=== PATIENT | female | born 1940 | race Caucasian/White ===

== ENCOUNTER 2025-06-06 22:35 | Inpatient (IN) | payer MEDICARE, SELFPAY ==
[2025-06-06] VITALS (8 sets, daily range): BP systolic 131–139; BP diastolic 55–96; PULSE 61–65; RESP 9–19; TEMP 37.2; O2SAT 83–98; BMI 56.5
--- OUTSIDE RECORDS SUMMARY | 2025-06-06 22:38 | XMS_ITS | Clinical Summary ---
Author Organization [facility] Address [address] [place] [id number] Care Team Providers Care Quality Assurance Technician Name Role Phone Keith Kern MD Primary Care Provider [phone] Radha Whalen [facility] Unavailable Allergies Active Allergy Reactions Criticality Noted Date Comments Penicillins Hives 11/02/2005 Shellfish Containing Products Vomiting 2011 fatigue Medications MULTIVITAMIN ORAL TAB Once a day. ? 0 005 Active cholecalciferol (VITAMIN D-3) 2,000 unit capsule Take 1 capsule by mouth once daily. 0 014 Active vit C,G-Ob-mdjcj-lutein-ze axan (PRESERVISION AREDS 2) capsule Take 2 capsules by mouth once daily. 0 017 Active blood-glucose meterIndications:Type 2 diabetes mellitus with stage 3 chronic kidney disease, without long-term current use of insulin (HC) Dispense meter, test strips, lancets covered by pt ins. E11.9 NIDDM type II - Test 1 time/day 1 Device 019 Active BiPapIndications:GIRISH (obstructive sleep apnea) BIPAP machine for home use at pressure: IPAP min 4 and max 12cm/H2O PS 0-4 nasal mask x1/3month with nasal cushion x2/mo 1 Each 11 023 Active lancets (OneTouch Delica Plus Lancet) 33 gauge miscIndications:Type 2 diabetes mellitus with stage 3b chronic kidney disease, without long-term current use of insulin (HC) As directed. Dispense item covered by pt ins. E11.9 NIDDM type II - Test 1 time/day 100 Each 3 024 Active valsartan (DIOVAN) 40 mg tabletIndications:CKD (chronic kidney disease) stage 4, GFR 15-29 ml/min (HC) Take 2 Tablets (80 mg) by mouth once daily. 60 Tablet 3 024 Active furosemide (LASIX) 40 mg tablet Take 40 mg by mouth once daily in the morning. Active blood sugar diagnostic ([employer] Verio test strips) stripIndications:Type 2 diabetes mellitus with stage 3b chronic kidney disease, without long-term current use of insulin (HC) USE A SDIRECTED TO TEST ONCE DAILY. 100 Each 3 025 Active atorvastatin 80 mg tabletIndications:Pure hypercholesterolemia TAKE 1 TABLET BY MOUTH EVERY DAY WITH THE EVENING MEAL 90 Tablet 025 Active Diltiazem HCl 300 mg extended release 24 hr tabletIndications:Esse ntial hypertension with goal blood pressure less than 140/90 Take 1 Tablet (300 mg) by mouth once daily. 30 Tablet 11 025 Active carvediloL (COREG) 6.25 mg tabletIndications:Hype rtensive renal disease Take 1 Tablet (6.25 mg) by mouth two times daily with meals. 120 Tablet 025 Active levothyroxine (SYNTHROID) 100 mcg tabletIndications:Acqu ired hypothyroidism TAKE 1 TABLET(100 MCG) BY MOUTH DAILY 90 Tablet 025 Active oxybutynin XL (DITROPAN XL) 5 mg CR tabletIndications:Urge incontinence of urine TAKE 1 TABLET(5 MG) BY MOUTH DAILY 90 Tablet 025 Active escitalopram oxalate (LEXAPRO) 5 mg tabletIndications:Anxi ety TAKE 1 TABLET(5 MG) BY MOUTH DAILY IN THE MORNING 90 Tablet 1 025 Active hydrALAZINE (APRESOLINE) 10 mg tabletIndications:HTN (hypertension) TAKE 2 TABLETS(20 MG) BY MOUTH TWICE DAILY 120 Tablet 025 Active hydrALAZINE 10 mg tabletIndications:HTN (hypertension) Take 2 Tablets (20 mg) by mouth two times daily. 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 Saw NS 07/01/2020. No change beteen 2011 and 2019 scans. Recommended FU scan in 6 months and yearly for three years. Radicular pain in right arm 09/11/2018 Essential hypertension with goal blood pressure less than 140/90 07/05/2017 Hyperopia of both eyes with astigmatism and pres byopia 09/14/2016 Meibomian gland dysfunction (MGD) 09/14/2016 Type 2 diabetes mellitus wit h stage 3a chronic kidney disease 12/17/2015 AMD (age-related macular degeneration), bilatera l 06/23/2015 Nuclear senile cataract of both eyes 06/23/2015 GIRISH 02/14/2014 AHI-24, worse in supine 03/14/2014 Overview (06/13/2014): Using CPAP On 11.8 cm H20 Personal history of colonic polyps 04/25/2012 Overview (04/25/2012): Colonoscopy 03/2012 polyp, diverticulosis, no follow up needed given age Glaucoma suspect of both eyes 04/04/2012 Weakness of right upper extremity 03/06/2012 ACP (advance care planning) 03/06/2012 Overview (11/16/2018): HCD received, please see HCD 11/09/18 RABIA Joaquin Advance Care Planning Educator [phone] RETINAL HOLE-L 11/02/2005 Obesity, morbid, BMI 40.0-49.9 04/17/2004 Hypothyroidism 01/25/2001 HYPERCHOLESTEROLEMIA, PURE 01/25/2001 Resolved Problems Problem Noted Date Diagnosed Date Resolved Date Congestive heart failure, unspecified 08/30/2006 06/18/2009 DIABETES MELLITUS, UNCOMPLICATED 01/25/2001 11/02/2005 SINUSITIS - ACUTE 11/02/2005 Encounters Date Type Department Care Team Description 05/30/2025 Telephone [facility] [place] [place] [address] [place] [address] Keith Kern MD Form (PHYSICAL THERAPY RECERT & PLAN OF CARE) 05/17/2025 Refill [facility] [place] [id number] [place] [id number] Radha Whalen MBBS Refill Request (Hydralazine) 04/15/2025 Refill [facility] [place] [place] [address] [place] [address] Keith Kern MD Refill Request (Escitalopram Oxalate) 04/12/2025 Refill [facility] [place] [place] [address] [place] [address] Keith Kern MD Refill Request (Levothyroxine, Oxybutynin Xl) 04/07/2025 Refill [facility] [place] [id number] [place] [address] Radha Whalen MBBS Refill Request (Carvedilol) from Last 3 Months Immunizations Immunization Administration Dates Next Due COVID-19 vaccine (Moderna 100mcg/0.5mL) PF, MDV 01/07/2021,12/10/2020 COVID-19 vaccine (Moderna Victor Manuel viola 50mcg/0.25mL) PF, MDV 07/31/2021 Influenza, High-dose Inactivated 06/17/2016,05/29,06/13/2014 Influenza, IIV3 (Age >=3 years) 08/13/20 13,07/13/2012,06/24/2011,2009,06/18/2009,09/06/2008,07/26/2007,1 11/05/2003 Influenza, Inactivated AIIV4 (Age 65+ Years) Preserv Free 06/17/2023,06/16/2022,07/16/2021,2019 Influenza, Inactivated IIV3 (Age 65+ Years) Preserv Free 06/19/2019,06/22/2018,07/05/2017 Pneumococcal Poly,23-Valent (Pneumovax) 03/23/2011,09/04/2004 Pneumococcal conj 13-Valent (Prevnar 13) 12/12/2014 Td (Age >=7 Years) 12/16/2004 Tdap 07/13/2012 Zoster (Zostavax-ZVL, live) 04/27/2013 Family History Medical History Relation Name Comments Heart Disease Father Heart Disease Maternal Grandfather Heart Disease Mother Hypertension Sister 3 Hyperlipidemia Sister 4 Cancer Sister 5 Uterine Cancer-breast No Family History Cancer-ovarian No Family History Relation Name Status Comments Father (Age 78) heart Maternal Grandfather Maternal Grandmother Mother (Age 83) heart Paternal Grandfather Paternal Grandmother Sister 1 Alive Sister 2 Alive Sister 3 Sister 4 Sister 5 Social History Tobacco Use Types Packs/Day Years Used Date Smoking Tobacco: Former Cigarettes 0.5 11 1 972 - 09/26/1982 Smokeless Tobacco: Never Tobacco Cessation:Counseling Given: Not Answered Alcohol Use Standard Drinks/Week Comments No 0 (1 standard drink = 0.6 oz pur e alcohol) PHQ-2 Answer Date Recorded PHQ-2 TOTAL SCORE 5 05/04/2024 Social Connections Answer Date Recorded Do you often feel lonely or isolated from those around you? 4 02/05/2025 Financial Resource Strain Answer Date R ecorded Difficulty of Paying Living Expenses 3 02/05/2025 Difficulty of Paying Living Expenses Not on file 02/05/2025 Food Insecurity Answer Date Recorded Do you worry your food will run out before you are able to buy more? 1 02/05/2025 Transportation Needs Answer Date Record ed Does lack of transportation keep you from medica l appointments? 1 02/05/2025 Does lack of transportation keep you from work, meetings or getting things that you need? 1 02/05/2025 Housing Stability Answer Date Recorded What is your housing situation today? 1 02/05/2025 Interpersonal Safety Answer Date Record ed Are you being hit, kicked, p ushed or yelled at (see row info)? No 06/03/2024 Interpersonal Safety Abuse 12 - 18 Not on file 06/03/2024 Interpersonal Safety Ambulatory Vulnerability No t on file 06/03/2024 Utilities Answer Date Recorded Do you have trouble paying f or utilities (for example, heat, electricity, water, phone)? 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 on file Not on file Not on file Obstetrics History Last Filed Vital Signs Vital Sign Reading Time Taken Comments Blood Pressure 132/54 02/05/2025 4:42 PM CDT Pulse 74 02/05/2025 4:42 PM CDT Temperature 36.7 C (98.1 F) 06/03/2024 2:20 PM CDT Respiratory Rate 16 06/03/2024 2:20 PM CDT Oxygen Saturation 94% 02/05/2025 4:4 2 PM CDT Inhaled Oxygen Concentration - - Weight 100.8 kg (222 lb 3.2 oz) 10/12/2024 10:51 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 Height 149.9 cm (4' 11) 06/03/2024 2:2 0 PM CDT Body Mass Index 44.88 06/03/2024 2:20 PM CDT Plan of Treatment Health Maintenance Due Date Last Done Comments Zoster (shingles) series for age 50+ (2 of 3) 06/22/2013 04/27/2013 RSV vaccine for adults or (1 - 1-dose 75+ series) 02/08/2016 Tetanus booster 07/13/2022 07/13/2012, 12/16/2004 BMI (ht and wt on same day) for age 18+ 05/04/2025 05/04/2024, 12/27/2023, 01/06/2023, Additional history exists Medicare Wellness for age 65+ 05/05/2025 05/04/2024, 12/17/2022, 09/10/2019, Additional history exists Depression screening for age 12+ 05/07/2025 05/07/2024, 05/04/2024, 12/17/2022, Additional history exists COVID-19 vaccine series ( season) 2025 07/31/2021, 01/07/2021, 12/10/2020 Influenza Vaccine (#1) 2025 3, 06/16/2022, 07/16/2021, Additional history exists Pneumococcal series for age 50+ Completed 12/12/2014, 03/23/2011, 09/04/2004 DEXA/DXA scan for age 65+ Completed 12/30/2016, Hepatitis B series for 19+ Aged Out N o longer eligible based on patient's age to complete this topic Procedures Procedure Name Priority Date/Time Associated Diagnosis Comments XR DXA BONE DENSITY 2 SITES AXIAL Routine 12/30/2016 9:53 AM CDT Asymptomatic postmenopausal state from Last 3 Months or Most Recently Relevant to Health Maintenance Results * (ABNORMAL) XR DXA BONE DENSITY 2 SITES AXIAL (12/30/2016 9:53 AM CDT) Anatomical Region Laterality Modality Spine, HIPS, HIPL, HIPR Other Narrative 02/01/2017 11:40 AM CDT Please see scanned document for results of this study. 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
--- NOTE | 2025-06-06 22:56 | CRLHL7_ITS ---
For Patients: As a result of the Century Cures Act, medical imaging exams and procedure reports are released immediately into your electronic medical record. You may view this report before your referring provider. If you have questions, please contact your health care provider. INDICATION: Fall, 06/05/2025. TECHNIQUE: CT head without contrast. COMPARISON: 05/15/2020. FINDINGS: Brain parenchyma, CSF spaces, and extra-axial spaces: Unchanged large right-sided posterior fossa arachnoid cyst with mass effect on the cerebellum.The lyles-white differentiation is normal. No acute intracranial hemorrhage. Skull base and calvarium: Mild bilateral maxillary sinus mucosal thickening. Prior left mastoidectomy. New fluid versus soft tissue density in the left middle ear. The visualized orbits are grossly unremarkable. No skull fracture. Atherosclerotic calcification of the bilateral carotid siphons. IMPRESSION: 1. No acute intracranial abnormality. 2. Unchanged large right-sided posterior fossa arachnoid cyst with mass effect cerebellum subarachnoid. 3. Prior left mastectomy with new fluid versus soft tissue density in the left middle ear. Recommend correlation for otitis media. Please note that all CT scans at this facility use dose modulation, iterative reconstruction, and/or weight-based dosing when appropriate to reduce radiation dose to as low as reasonably achievable. Dictated by Grant Milan MD @ 06/07/2025 12:52:23 AM (Electronically Signed)
--- NOTE | 2025-06-06 22:56 | CRLHL7_ITS ---
For Patients: As a result of the Century Cures Act, medical imaging exams and procedure reports are released immediately into your electronic medical record. You may view this report before your referring provider. If you have questions, please contact your health care provider. INDICATION: Fall. TECHNIQUE: CT cervical spine without contrast. COMPARISON: None. FINDINGS: Vertebrae: Straightening of the cervical lordosis with grade 1 anterolisthesis of C4 on C5. There are no fractures or suspicious bony lesions. Discs and facet joints: There are wpxb-ig-grkllgyo diffuse degenerative changes in the disc spaces and facet joints. Extraspinal findings: Paraspinous soft tissues are unremarkable. IMPRESSION: 1. No sign of acute injury. 2. Deyp-qo-qymouuty multilevel degenerative spondylosis. Please note that all CT scans at this facility use dose modulation, iterative reconstruction, and/or weight-based dosing when appropriate to reduce radiation dose to as low as reasonably achievable. Dictated by Grant Milan MD @ 06/07/2025 12:55:45 AM (Electronically Signed)
--- NOTE | 2025-06-06 22:56 | CRLHL7_ITS ---
For Patients: As a result of the Century Cures Act, medical imaging exams and procedure reports are released immediately into your electronic medical record. You may view this report before your referring provider. If you have questions, please contact your health care provider. INDICATION: FALL 06/05/25, BRUISING LT UPPER POSTERIOR RIBS. TECHNIQUE: CT chest without contrast. COMPARISON: None. FINDINGS: Lungs and pleura: No suspicious nodules or infiltrates. No pleural effusions, pleural thickening, or pneumothorax. Heart and vasculature: Heart size is normal. Thoracic aorta and pulmonary artery are normal in caliber. Coronary artery and thoracic aorta atherosclerotic calcification. Lymph nodes/mediastinum: No mediastinal, hilar, or axillary adenopathy. Chest wall: No masses. Upper abdomen: Indeterminate 3.5 cm hyperdense left renal lesion. 3 mm nonobstructing left nephrolith. Bones: Unremarkable for age. IMPRESSION: 1. No evidence of an acute traumatic injury within the chest. No acute findings. 2. Indeterminate 3.5 cm hyperdense left renal lesion, possibly a proteinaceous or hemorrhagic cyst. Consider ultrasound for further evaluation. Please note that all CT scans at this facility use dose modulation, iterative reconstruction, and/or weight-based dosing when appropriate to reduce radiation dose to as low as reasonably achievable. Dictated by Grant Milan MD @ 06/07/2025 1:03:15 AM (Electronically Signed)
--- NOTE | 2025-06-06 23:00 | ED.GENADULT ---
HPI - General Adult General Date Seen: 06/06/25 <Harley Hitesh DO Perfecto - Last Filed: 06/06/25 23:51> Chief complaint: Urogenital Problems, Female <Harley Grove DO - Last Filed: 06/06/25 23:51> Stated complaint: weakness/ infection <Harley Grove DO - Last Filed: 06/06/25 23:51> Time Seen by Provider: 06/06/25 22:47 <Harley Tororam DO - Last Filed: 06/06/25 23:51> Source: patient <Harley Grove DO - Last Filed: 06/06/25 23:51> Mode of arrival: ambulatory <Harley Grove - Last Filed: 06/06/25 23:51> Limitations: no limitations <Harley Grove DO - Last Filed: 06/06/25 23:51> History of Present Illness HPI narrative: Patient is a 5-year-old female presenting to the emergency department for altered mental status. She lives at home alone but her son lives next door. She does have a history of dementia. He states notice yesterday she fell once but was doing okay other than having some bruising to her left arm and left side of her back. She did not hit her head as far as they are aware but cannot say for certain. The patient since then they have noticed has been much more sleepy and fatigued. They notice she will be walking at all look like she falls asleep while she is walking. They have never noticed her do this before. She also falsely big conversation which is abnormal for her. She went to physical therapy today and when she got back she slept some more. She does have history of UTIs and they are wondering if she has a urinary tract infection. He also states she felt warm to the touch at home. Patient denies fevers, chills, chest pain, shortness of breath, weakness, numbness, diarrhea, constipation, abdominal pain, headache, vision changes. When patient arrived she was satting 83% on room air. She does not wear oxygen at home. She does have a CPAP at night. <Harley Grove - Last Filed: 06/06/25 23:51> Related Data Allergies/adverse reactions: Allergies Allergy/AdvReac Type Severity Reaction Status Date / Time No Known Drug Allergies Allergy Verified 06/06/25 22:47 <Harley Grove DO - Last Filed: 06/06/25 23:51> Review of Systems Status of ROS: Reports: 10 or more systems reviewed and unremarkable except as noted in History and below <Harley Grove DO - Last Filed: 06/06/25 23:51> PFSH PFSH Social History: Social History Smoking Status: Unknown if ever smoked <Harley Grove DO - Last Filed: 06/06/25 23:51> Exam Narrative: Exam Narrative: Const: Well-nourished, Well-developed, in mild distress Eyes: PERRL, no conjunctival injection, and symmetrical lids HENT: Atraumatic external nose and ears. Moist mucous membranes. Neck: Symmetric, trachea midline, No thyromegaly. CVS: RRR, No murmurs or gallops. Peripheral pulses 2+ and equal in all extremities RESP: Unlabored respiratory effort. Clear to auscultation bilaterally. GI: Nontender/Nondistended, No rebound or guarding. MSK:Extremities w/o deformity, Normal Active ROM, tenderness and bruising to her left lateral upper back Skin: Warm, Dry. No rashes or lesions. Neuro: Normal Muscle tone, No focal neurological deficits. Psych: Awake, Alert, & Oriented x3. Appropriate mood and affect. <Harley Grove DO - Last Filed: 06/06/25 23:51> Const: Vital Signs, click to edit/add: Vital Signs - 24 hr 06/06/25 22:42 06/06/25 22:42 06/06/25 22:48 Temperature 98.9 F Pulse Rate 61 Pulse Rate [Right Pulse Oximeter] 65 Respiratory Rate 18 18 Blood Pressure 139/69 Blood Pressure [Ri ght Upper Arm] 139/96 H Pulse Oximetry 83 L 83 L 95 Oxygen Delivery Me thod Room Air Room Air Nasal Cannula Oxygen Flow Rate 2 06/06/25 23:33 06/06/25 23:47 06/07/25 00:00 Temperature Pulse Rate 63 65 67 Pulse Rate [Right Pulse Oximeter] Respiratory Rate 12 13 Blood Pressure 131/55 L Blood Pressure [Ri ght Upper Arm] Pulse Oximetry 95 94 95 Oxygen Delivery Me thod Nasal Cannula Room Air Room Air Oxygen Flow Rate 1 <Harley Grove DO - Last Filed: 06/06/25 23:51> Vital Signs, click to edit/add: Vital Signs - 24 hr 06/06/25 22:42 06/06/25 22:42 06/06/25 22:48 Temperature 98.9 F Pulse Rate 61 Pulse Rate [Right Pulse Oximeter] 65 Respiratory Rate 18 18 Blood Pressure 139/69 Blood Pressure [Ri ght Upper Arm] 139/96 H Pulse Oximetry 83 L 83 L 95 Oxygen Delivery Me thod Room Air Room Air Nasal Cannula Oxygen Flow Rate 2 06/06/25 23:33 06/06/25 23:47 06/07/25 00:00 Temperature Pulse Rate 63 65 67 Pulse Rate [Right Pulse Oximeter] Respiratory Rate 12 13 Blood Pressure 131/55 L Blood Pressure [Ri ght Upper Arm] Pulse Oximetry 95 94 95 Oxygen Delivery Me thod Nasal Cannula Room Air Room Air Oxygen Flow Rate 1 <Souleymane Grande MD - Last Filed: 06/07/25 01:18> Course Vital Signs Vital signs: Initial Vital Signs Temperature 98.9 F 06/06/25 22:42 Temperature Source Temporal Artery Scan 06/06/25 22:42 Pulse Rate 65 06/06/25 22:42 Pulse Rhythm Regular 06/06/25 22:42 Pulse Strength 3+ Normal 06/06/25 22:42 Respiratory Rate 18 06/06/25 22:42 Blood Pressure 139/96 H 06/06/25 22:42 Blood Pressure Mean 110 H 06/06/25 22:42 Blood Pressure Position Sitting 06/06/25 22:42 Pulse Oximetry 83 L 06/06/25 22:42 Oxygen Delivery Method Room Air 06/06/25 22:42 Vital Signs Temperature 98.9 F 06/06/25 22:42 Pulse Rate 65 06/06/25 22:42 Respiratory Rate 18 06/06/25 22:42 Blood Pressure 139/96 H 06/06/25 22:42 Pulse Oximetry 83 L 06/06/25 22:42 Oxygen Delivery Method Room Air 06/06/25 22:42 Temperature 98.9 F 06/06/25 22:42 Pulse Rate 67 06/07/25 00:00 Respiratory Rate 13 06/07/25 00:00 Blood Pressure 131/55 L 06/06/25 23:33 Pulse Oximetry 95 06/07/25 00:00 Oxygen Delivery Method Room Air 06/07/25 00:00 Oxygen Flow Rate 1 06/06/25 23:33 <Harley Grove DO - Last Filed: 06/06/25 23:51> Initial Vital Signs Temperature 98.9 F 06/06/25 22:42 Temperature Source Temporal Artery Scan 06/06/25 22:42 Pulse Rate 65 06/06/25 22:42 Pulse Rhythm Regular 06/06/25 22:42 Pulse Strength 3+ Normal 06/06/25 22:42 Respiratory Rate 18 06/06/25 22:42 Blood Pressure 139/96 H 06/06/25 22:42 Blood Pressure Mean 110 H 06/06/25 22:42 Blood Pressure Position Sitting 06/06/25 22:42 Pulse Oximetry 83 L 06/06/25 22:42 Oxygen Delivery Method Room Air 06/06/25 22:42 Vital Signs Temperature 98.9 F 06/06/25 22:42 Pulse Rate 65 06/06/25 22:42 Respiratory Rate 18 06/06/25 22:42 Blood Pressure 139/96 H 06/06/25 22:42 Pulse Oximetry 83 L 06/06/25 22:42 Oxygen Delivery Method Room Air 06/06/25 22:42 Temperature 98.9 F 06/06/25 22:42 Pulse Rate 67 06/07/25 00:00 Respiratory Rate 13 06/07/25 00:00 Blood Pressure 131/55 L 06/06/25 23:33 Pulse Oximetry 95 06/07/25 00:00 Oxygen Delivery Method Room Air 06/07/25 00:00 Oxygen Flow Rate 1 06/06/25 23:33 <Souleymane Grande MD - Last Filed: 06/07/25 01:18> Medical Decision Making MDM Narrative Medical decision making narrative: Patient is 85-year-old female presenting to the emergency department for concern of weakness. The differential diagnosis of generalized weakness is broad and includes infection, electrolyte abnormalities, ACS, arrhythmia, hypoglycemia, electrolyte abnormality, respiratory failure, anemia, hypothyroidism, dehydration, medication induced etc. as he did recently fall will do CT scan of her head and cervical spine. Since he was hypoxic will also do a CT scan of her chest to look for signs of any intrathoracic abnormalities. Will also order EKG, troponin, urinalysis, blood cultures, lactate, CBC, CMP, viral swabs, magnesium. She is not appear dehydrated at this time. CBC, CMP showed no acute concerning abnormalities. Her epic chart review her creatinine is baseline. Lactate within normal limits. Magnesium within normal limits. Patient is currently on 1 L nasal cannula satting 95%. Of note she does need a CPAP at night and she is drifting off to sleep which is likely the cause of her desaturation. <Harley Grove DO - Last Filed: 06/06/25 23:51> Patient is 85-year-old female presenting to the emergency department for concern of weakness. The differential diagnosis of generalized weakness is broad and includes infection, electrolyte abnormalities, ACS, arrhythmia, hypoglycemia, electrolyte abnormality, respiratory failure, anemia, hypothyroidism, dehydration, medication induced etc. as he did recently fall will do CT scan of her head and cervical spine. Since he was hypoxic will also do a CT scan of her chest to look for signs of any intrathoracic abnormalities. Will also order EKG, troponin, urinalysis, blood cultures, lactate, CBC, CMP, viral swabs, magnesium. She is not appear dehydrated at this time. CBC, CMP showed no acute concerning abnormalities. Her epic chart review her creatinine is baseline. Lactate within normal limits. Magnesium within normal limits. Patient is currently on 1 L nasal cannula satting 95%. Of note she does need a CPAP at night and she is drifting off to sleep which is likely the cause of her desaturation. UA is unremarkable. Labs are reviewed. CT head and neck showed no acute abnormalities but she does have otitis media on the left on my exam and also on imaging. She has unremarkable chest CT. She is unable to get up. Did start her on Augmentin and at this time we are unable to get her home and she will be placed in observation. <Souleymane Grande MD - Last Filed: 06/07/25 01:18> Lab Data Labs: Lab Results 06/06/25 06/06/25 Range/Units 00:00 23:20 WBC 8.13 (4.50-11.00) K/uL RBC 3.34 L (4.00-5.20) m/uL Hgb 10.3 L (12.0-16.0) gm/dL Hct 32.2 L (33.0-51.0) % MCV 96 (80-100) fL MCH 31 (26-34) pg MCHC 32 (32-36) gm/dL RDW Coeff of Juan 13.0 (11.5-15.5) % Plt Count 164 (140-440) K/uL Neut % (Auto) 70.3 (42.0-72.0) % Lymph % (Auto) 19.1 L (20-44) % Granite % (Auto) 9.1 (0.0-11.0) % Eos % (Auto) 1.2 (0.0-7.0) % Baso % (Auto) 0.2 (0.0-3.0) % Neut # (Auto) 5.71 (1.7-7.0) K/uL Lymph # (Auto) 1.60 (0.90-2.90) K/uL Granite # (Auto) 0.70 (0.00-0.90) K/UL Eos # (Auto) 0.10 (0.00-0.50) K/uL Baso # (Auto) 0.02 (0.00-0.30) K/uL Abs Immat Gran (auto) 0.01 (0.00-0.30) K/uL Imm/Tot Granulo (auto) 0.1 % Sodium 138 (135-149) mmol/L Potassium 4.1 (3.6-5.1) mmol/L Chloride 99 (96-114) mmol/L Carbon Dioxide 35 H (20-32) mmol/L Anion Gap 4 L (7-15) mEq/L BUN 40 H (7-30) mg/dL Creatinine 1.6 H (0.5-1.5) mg/dL Estimated Creat Clear 24.50 Estimated GFR 32 ml/min Glucose 108 (60-115) mg/dL Lactate 0.6 (0.5-1.9) mmol/L Calcium 8.9 (8.4-10.6) mg/dL Magnesium 2.0 (1.5-2.6) mg/dL Total Bilirubin 0.7 (0.1-1.5) mg/dL AST 31 (12-35) U/L ALT 15 (4-35) U/L Alkaline Phosphatase 83 (40-150) U/L Troponin I 0.01 (0.01-0.04) ng/mL Total Protein 6.9 (6.0-8.3) g/dL Albumin 3.8 (3.3-5.0) g/dL Urine Color Yellow (Yellow) Urine Appearance Clear (Clear) Urine pH 5.5 (5.0-8.5) Ur Specific [place] 1.025 (1.000-1.030) Urine Protein 3+ A (Negative) Urine Glucose (UA) Negative (Negative) Urine Ketones Negative (Negative) Urine Blood Negative (Negative) Urine Nitrite Negative (Negative) Urine Bilirubin Negative (Negative) Urine Urobilinogen 0.2 (0.2-1.0) Ur Leukocyte Esterase Negative (Negative) Urine RBC 2-5 A (0-2) Urine WBC 0-2 (0-5) Ur Squamous Epith Cells Few (None-Few) Urine Bacteria Few A (None) Urine Mucus Few A (None) SARS-CoV-2 (PCR) Negative SARS-CoV-2 (Negative) Influenza Type A (PCR) Negative PCR FLU A (Negative) Influenza Type B (PCR) Negative PCR FLU B (Negative) RSV (PCR) Negative PCR RSV (Negative) <Harley Grove, DO - Last Filed: 06/06/25 23:51> Lab Results 06/06/25 06/06/25 Range/Units 00:00 23:20 WBC 8.13 (4.50-11.00) K/uL RBC 3.34 L (4.00-5.20) m/uL Hgb 10.3 L (12.0-16.0) gm/dL Hct 32.2 L (33.0-51.0) % MCV 96 (80-100) fL MCH 31 (26-34) pg MCHC 32 (32-36) gm/dL RDW Coeff of Juan 13.0 (11.5-15.5) % Plt Count 164 (140-440) K/uL Neut % (Auto) 70.3 (42.0-72.0) % Lymph % (Auto) 19.1 L (20-44) % Granite % (Auto) 9.1 (0.0-11.0) % Eos % (Auto) 1.2 (0.0-7.0) % Baso % (Auto) 0.2 (0.0-3.0) % Neut # (Auto) 5.71 (1.7-7.0) K/uL Lymph # (Auto) 1.60 (0.90-2.90) K/uL Granite # (Auto) 0.70 (0.00-0.90) K/UL Eos # (Auto) 0.10 (0.00-0.50) K/uL Baso # (Auto) 0.02 (0.00-0.30) K/uL Abs Immat Gran (auto) 0.01 (0.00-0.30) K/uL Imm/Tot Granulo (auto) 0.1 % Sodium 138 (135-149) mmol/L Potassium 4.1 (3.6-5.1) mmol/L Chloride 99 (96-114) mmol/L Carbon Dioxide 35 H (20-32) mmol/L Anion Gap 4 L (7-15) mEq/L BUN 40 H (7-30) mg/dL Creatinine 1.6 H (0.5-1.5) mg/dL Estimated Creat Clear 24.50 Estimated GFR 32 ml/min Glucose 108 (60-115) mg/dL Lactate 0.6 (0.5-1.9) mmol/L Calcium 8.9 (8.4-10.6) mg/dL Magnesium 2.0 (1.5-2.6) mg/dL Total Bilirubin 0.7 (0.1-1.5) mg/dL AST 31 (12-35) U/L ALT 15 (4-35) U/L Alkaline Phosphatase 83 (40-150) U/L Troponin I 0.01 (0.01-0.04) ng/mL Total Protein 6.9 (6.0-8.3) g/dL Albumin 3.8 (3.3-5.0) g/dL Urine Color Yellow (Yellow) Urine Appearance Clear (Clear) Urine pH 5.5 (5.0-8.5) Ur Specific [place] 1.025 (1.000-1.030) Urine Protein 3+ A (Negative) Urine Glucose (UA) Negative (Negative) Urine Ketones Negative (Negative) Urine Blood Negative (Negative) Urine Nitrite Negative (Negative) Urine Bilirubin Negative (Negative) Urine Urobilinogen 0.2 (0.2-1.0) Ur Leukocyte Esterase Negative (Negative) Urine RBC 2-5 A (0-2) Urine WBC 0-2 (0-5) Ur Squamous Epith Cells Few (None-Few) Urine Bacteria Few A (None) Urine Mucus Few A (None) SARS-CoV-2 (PCR) Negative SARS-CoV-2 (Negative) Influenza Type A (PCR) Negative PCR FLU A (Negative) Influenza Type B (PCR) Negative PCR FLU B (Negative) RSV (PCR) Negative PCR RSV (Negative) <Souleymane Grande MD - Last Filed: 06/07/25 01:18> Discharge Plan Discharge Clinical Impression: Weakness <Harley Grove DO - Last Filed: 06/06/25 23:51> Patient Disposition: Admitted As Observation <Harley Grove DO - Last Filed: 06/06/25 23:51> Condition: Stable <Harley Grove DO - Last Filed: 06/06/25 23:51> Activity Level: Other <Harley Grove DO - Last Filed: 06/06/25 23:51> Other <Souleymane Grande MD - Last Filed: 06/07/25 01:18> Discharge Diet: Other <Harley Grove DO - Last Filed: 06/06/25 23:51> Other <Souleymane Grande MD - Last Filed: 06/07/25 01:18>
[2025-06-06 23:19] LABS: Lactate Sepsis w/Reflex* 0.6 mmol/L (0.5-1.9)
[2025-06-06 23:26] LABS: Hematocrit* 32.2 % (33.0-51.0); Hemoglobin* 10.3 gm/dL (12.0-16.0); Immature Granulocytes Abs Auto 0.01 K/uL (0.00-0.30); Immature Granulocytes Pct Auto 0.1 %; Mean Corpuscular HGB Conc 32 gm/dL (32-36); Mean Corpuscular Hemoglobin 31 pg (26-34); Mean Corpuscular Volume 96 fL (80-100); RDW Coefficient of Variation % 13.0 % (11.5-15.5); Red Blood Count* 3.34 m/uL (4.00-5.20); White Blood Count* 8.13 K/uL (4.50-11.00)
[2025-06-06 23:28] LABS: Lymphocytes Absolute Auto 1.60 K/uL (0.90-2.90); Slide Review Reflex No
[2025-06-06 23:41] LABS: Albumin* 3.8 g/dL (3.3-5.0); Chloride* 99 mmol/L (96-114); Potassium* 4.1 mmol/L (3.6-5.1); Sodium* 138 mmol/L (135-149)
[2025-06-06 23:44] LABS: Alanine Aminotransferase* 15 U/L (4-35); Alkaline Phosphatase* 83 U/L (40-150); Anion Gap 4 mEq/L (7-15); Aspartate Amino Transferase* 31 U/L (12-35); Bilirubin Total* 0.7 mg/dL (0.1-1.5); Blood Urea Nitrogen* 40 mg/dL (7-30); Calcium* 8.9 mg/dL (8.4-10.6); Carbon Dioxide* 35 mmol/L (20-32); Creatinine* 1.6 mg/dL (0.5-1.5); Est. Creatinine Clearance* 24.50; Estimated Glomerular Filt Rate 32 ml/min; Glucose* 108 mg/dL (60-115); Total Protein* 6.9 g/dL (6.0-8.3)
[2025-06-06 23:58] LABS: PCR FLU A Negative PCR FLU A (Negative); PCR FLU B Negative PCR FLU B (Negative); PCR RSV Negative PCR RSV (Negative); SARS PCR* Negative SARS-CoV-2 (Negative)
[2025-06-07] VITALS (31 sets, daily range): BP systolic 126–182; BP diastolic 52–90; PULSE 49–67; RESP 0–20; TEMP 36.2–36.6; O2SAT 81–99
[2025-06-07 00:07] LABS: Appearance Urine Clear (Clear)
[2025-06-07] MEDS: AMPICILLIN/SULBACTAM 1.5 GM in 0.9 % SODIUM CHLORIDE Mini-bag 100 ML IVPB (02:15)
--- NOTE | 2025-06-07 03:22 | W.PM.THH&P_ITS ---
Telehealth- H&P: HPI History of Present Illness Time Seen by Provider: 02:50 Date Seen: 06/07/25 Chief complaint: weakness/ infection Narrative: Mariia Harding is seen as an Interactive Telehealth visit. Nursing has assisted with the interview and exam. History was obtained from patient's son who is quite involved in her care. Mariia has a past history significant for longstanding sleep apnea, type 2 diabetes, progressive memory loss who presented with excessive somnolence and drowsiness over the last 2 weeks, worse since yesterday. Per description from son, Mariia was unarousable this a.m. She initially sustained a fall around 5:30 AM at which point she called her son. When he arrived, she was lying on the carpet and had folded the blanket under her head. He was able to get her up and advised her to get ready for her appointment for PT. When he returned to her home 45 minutes later, she had fallen back to sleep. Eventually, he took her to PT and when she returned, she again fell asleep and was difficult to arouse. Over the last 12 hours prior to admission, she has been essentially very drowsy and unarousable. Son endorsed she has a longstanding history of sleep apnea and her sleep study was many years ago. She tries to be compliant with her home CPAP device but as she wakes up multiple times at night to use the restroom, she spends hours off of the CPAP machine. Her daytime drowsiness has been worsening over the last 2 weeks. Per description from niece who lives with the patient, Mariia has been somnolent most hours during the day. Review of Systems Status of ROS: Reports: unobtainable due to medical condition Narrative: ROS obtained from son, he notes she has not been sick with fever or cough. Her activity level at home has declined over the last 2 weeks with excessive daytime somnolence. She has had significant nocturia, unsure about dysuria. PFSH PFS Social History Smoking Status: Unknown if ever smoked Meds Home Medications and Allergies Allergies Allergy/AdvReac Type Severity Reaction Status Date / Time Penicillins Allergy Unverified 06/07/25 03:48 shellfish derived Allergy Unverified 06/07/25 03:48 Exam Narrative Exam Narrative: Physical Exam GENERAL: ?vital signs reviewed, pt with sig obesity, very somnolent and difficult to arouse HEENT: pupils are equal round and reactive to light, NECK: Supple without lymphadenopathy or thyromegaly according to nursing staff examination observation HEART: Regular rate and rhythm without any rubs, murmurs, or gallops. LUNGS: Clear to auscultation bilaterally, bibasilar crackles + ABDOMEN: Observation from nurse assisted exam, abdomen appears soft, nontender, and nondistended with Positive bowel sounds noted. EXTREMITIES: Strength and sensation is observed to be grossly within normal limits in the upper and lower extremities.? No focal strength deficit is observed. SKIN:? Observed warm and dry with color normal Const Vital Signs, click to edit/add: Vital Signs - 24 hr 06/06/25 22:42 06/06/25 22:42 06/06/25 22:48 Temperature 98.9 F Pulse Rate 61 Pulse Rate [Right Pulse Oximeter] 65 Respiratory Rate 18 18 Blood Pressure 139/69 Blood Pressure [Right Upper Arm] 139/96 H Pulse Oximetry 83 L 83 L 95 Oxygen Delivery Method Room Air Room Air Nasal Cannula Oxygen Flow Rate 2 06/06/25 22:50 06/06/25 23:10 06/06/25 23:20 Temperature Pulse Rate Pulse Rate [Right Pulse Oximeter] Respiratory Rate 19 10 L 14 Blood Pressure Blood Pressure [Right Upper Arm] Pulse Oximetry 98 95 Oxygen Delivery Method Oxygen Flow Rate 06/06/25 23:33 06/06/25 23:47 06/06/25 23:50 Temperature Pulse Rate 63 65 Pulse Rate [Right Pulse Oximeter] Respiratory Rate 12 9 L Blood Pressure 131/55 L Blood Pressure [Right Upper Arm] Pulse Oximetry 95 94 94 Oxygen Delivery Method Nasal Cannula Room Air Oxygen Flow Rate 1 06/07/25 00:00 06/07/25 00:03 06/07/25 00:03 Temperature Pulse Rate 67 Pulse Rate [Right Pulse Oximeter] Respiratory Rate 13 18 18 Blood Pressure Blood Pressure [Right Upper Arm] Pulse Oximetry 95 88 88 Oxygen Delivery Method Room Air Oxygen Flow Rate 06/07/25 00:03 06/07/25 00:10 06/07/25 00:20 Temperature Pulse Rate Pulse Rate [Right Pulse Oximeter] Respiratory Rate 18 4 L 5 L Blood Pressure Blood Pressure [Right Upper Arm] Pulse Oximetry 88 91 84 L Oxygen Delivery Method Oxygen Flow Rate 06/07/25 00:30 06/07/25 00:33 06/07/25 00:40 Temperature Pulse Rate Pulse Rate [Right Pulse Oximeter] Respiratory Rate 0 L 10 L 8 L Blood Pressure Blood Pressure [Right Upper Arm] Pulse Oximetry 85 L 81 L 95 Oxygen Delivery Method Oxygen Flow Rate 06/07/25 00:50 06/07/25 01:00 06/07/25 01:03 Temperature Pulse Rate Pulse Rate [Right Pulse Oximeter] Respiratory Rate 12 11 L 10 L Blood Pressure Blood Pressure [Right Upper Arm] Pulse Oximetry 91 93 90 Oxygen Delivery Method Oxygen Flow Rate 06/07/25 01:10 06/07/25 01:21 06/07/25 01:30 Temperature Pulse Rate Pulse Rate [Right Pulse Oximeter] Respiratory Rate 7 L 11 L 16 Blood Pressure Blood Pressure [Right Upper Arm] Pulse Oximetry 95 96 95 Oxygen Delivery Method Oxygen Flow Rate 06/07/25 01:40 06/07/25 01:50 06/07/25 02:00 Temperature Pulse Rate Pulse Rate [Right Pulse Oximeter] Respiratory Rate 18 9 L 15 Blood Pressure Blood Pressure [Right Upper Arm] Pulse Oximetry 96 96 96 Oxygen Delivery Method Oxygen Flow Rate 06/07/25 02:10 Temperature Pulse Rate Pulse Rate [Right Pulse Oximeter] Respiratory Rate 16 Blood Pressure Blood Pressure [Right Upper Arm] Pulse Oximetry 98 Oxygen Delivery Method Oxygen Flow Rate Hospitalist - H&P: Result Labs Labs: Short CBC 06/06/25 Range/Units 23:20 WBC 8.13 (4.50-11.00) K/uL Hgb 10.3 L (12.0-16.0) gm/dL Hct 32.2 L (33.0-51.0) % Plt Count 164 (140-440) K/uL BMP 06/06/25 23:20 Sodium 138 Potassium 4.1 Chloride 99 Carbon Dioxide 35 H BUN 40 H Creatinine 1.6 H Glucose 108 Calcium 8.9 Cardiac Enzymes 06/06/25 Range/Units 23:20 Troponin I 0.01 (0.01-0.04) ng/mL Liver Function 06/06/25 Range/Units 23:20 Total Bilirubin 0.7 (0.1-1.5) mg/dL AST 31 (12-35) U/L ALT 15 (4-35) U/L Alkaline Phosphatase 83 (40-150) U/L Albumin 3.8 (3.3-5.0) g/dL Urine 06/06/25 Range/Units 00:00 Urine Color Yellow (Yellow) Urine Appearance Clear (Clear) Urine pH 5.5 (5.0-8.5) Ur Specific [place] 1.025 (1.000-1.030) Urine Protein 3+ A (Negative) Urine Glucose (UA) Negative (Negative) Assessment and Plan Assessment and plan (1) Obesity hypoventilation syndrome: Status: Acute (2) Diabetes type 2: Status: Acute (3) Acute metabolic encephalopathy: Status: Acute (4) Right heart failure: Status: Acute Plan Obesity hypoventilation syndrome: Obstructive Sleep Apnea Patient's presentation seems typical for chronic hypercapnia with resultant metabolic encephalopathy in the setting of poorly controlled GIRISH. Admit to ICU Cardiac monitoring Continuous oximetry Checking stat ABG If significant hypercarbia which I suspect she might have, she will need BiPAP. Metabolic Acidosis AB.32/64/58/33 Patient's CO2 level is elevated, however, she appears more somnolent than can be explained by CO2 alone. Will review medications. Also significantly hypoxic. Decision made to start BiPAP. Pressures: IPAP 15/EPAP 5, FiO2 50%. Acute metabolic encephalopathy Likely hypercarbia in the setting of obesity hypoventilation. Stat ABG has been ordered. Keeping head of bed elevated. Keeping n.p.o. for now. Right heart failure Given prolonged history of poorly controlled sleep apnea and significant obesity, patient likely has right heart failure if not biventricular failure. Check echocardiogram in a.m. Son endorse she is on diuretics though dose is not clear as yet. Will give her a stat dose of furosemide 40 mg IV. Type 2 diabetes mellitus Son was unsure as to her medications. For now, will start on Accu-Cheks every 6 hours and SSI Total Time Spent Total Time Spent: 70 min Telehealth: Statement Statement Telehealth Visit: Today's History and Physical is provided via interactive telehealth by Stephanie Osei MD.? Patient is located at [facility].? Provider is located at [facility].? Nursing staff assisted with the patient's exam. The visit being done today meets criteria for a telehealth visit and the patient or patient?s parent/guardian is aware the visit is a telehealth visit. Camera Start Time: 02:30 Camera End Time: 02:50
[2025-06-07 03:37] LABS: HCO3 ABG 33 mmol/L (21-28); Oxygen Saturation ABG 90 % (92-100); PO2 ABG 58.2 mmHG (80-105); TCO2 ABG 32 mmol/l (21-30)
[2025-06-07 03:38] LABS: ABG PCO2 64 mmHG (35-45)
[2025-06-07] MEDS: SODIUM CHLORIDE 0.9 % (FLUSH) 10 ML SYRINGE 5 ML IVF ×5 (04:35→21:56)
[2025-06-07] MEDS: FUROSEMIDE 10 MG/ML inj 40 MG IVP ×3 (04:35→18:07)
[2025-06-07] MEDS: HEPARIN 5,000 UNIT/0.5 ML INJ 5000 UNIT SUBCUT ×3 (05:16→20:47)
[2025-06-07 05:18] LABS: HCO3 ABG 33 mmol/L (21-28); Oxygen Saturation ABG 91 % (92-100); PO2 ABG 60.0 mmHG (80-105); TCO2 ABG 31 mmol/l (21-30)
[2025-06-07 05:21] LABS: ABG PCO2 62 mmHG (35-45)
[2025-06-07 05:34] LABS: Chloride* 100 mmol/L (96-114); Sodium* 139 mmol/L (135-149)
[2025-06-07 05:35] LABS: Potassium* 3.8 mmol/L (3.6-5.1)
[2025-06-07 05:38] LABS: Anion Gap 4 mEq/L (7-15); Blood Urea Nitrogen* 38 mg/dL (7-30); Calcium* 8.9 mg/dL (8.4-10.6); Carbon Dioxide* 35 mmol/L (20-32); Creatinine* 1.6 mg/dL (0.5-1.5); Est. Creatinine Clearance* 24.50; Estimated Glomerular Filt Rate 32 ml/min; Glucose* 110 mg/dL (60-115)
[2025-06-07 05:49] LABS: NT Pro B Type NatriureticPept* 904 pg/mL (See Note)
--- NOTE | 2025-06-07 06:33 | PC.NURSE ---
Pt is drowsy but opens eyes and will occasionally respond to yes and no questions. Pt was placed on BIPAP around 0430 and tolerating well. Pt PCO2 treading down from 64 before placing BIPAP 59 this morning 0640. Pt's lung sounds are clear. Pt's sosa catheter is patent and draining.
[2025-06-07 06:46] LABS: ABG PCO2 59 mmHG (35-45); HCO3 ABG 34 mmol/L (21-28); Oxygen Saturation ABG 91 % (92-100); PO2 ABG 57.6 mmHG (80-105); TCO2 ABG 32 mmol/l (21-30)
[2025-06-07 08:24] LABS: Cannabinoid Screen Urine Negative (Negative); Methamphetamines Screen Urine Negative (Negative); Tricyclic Antidepressant Urine Negative (Negative)
--- NOTE | 2025-06-07 10:08 | RESP.RT ---
Patient more alert during MD assessment. Will trial off Bipap and placed on 1 lpm nasal cannula. Will continue to monitor patients respiratory status.
[2025-06-07] MEDS: NYSTATIN CREAM 30 GM 1 APPLIC TOPICAL ×3 (10:28→21:56)
[2025-06-07] MEDS: NYSTATIN POWDER 1 APPLIC TOPICAL ×2 (10:29→21:56)
--- NOTE | 2025-06-07 11:07 | PM.IMPN1 ---
Assessment and Plan Assessment and plan (1) Acute metabolic encephalopathy: Problem comment: - Improving. Cause uncertain. Certainly has some somnolence periodically due to partially treated GIRISH (uses CPAP part of each night), with hypercapnea on admission that was at least contributing to AMS, it is unclear if it was the cause or worsened by GIRISH in setting of somnolence for a different reason. CT head, admission labs including electrolytes, lactate, LFTs, glucose, WBC, UA, Utox, COVID/flu/RSV reassuring. Patient has not had travel or mosquito/tick exposure. EKG and trop from admission reassuring. ECHO pending. LLE symptoms concerning for the possibility of stroke, will obtain MRI head today. Since she is awake and no mosquito/tick exposure, leukocytosis or headache, I do not think an LP would be helpful at this point. Status: Acute (2) Acute hypercapnic respiratory failure: Problem comment: CT chest without contrast yesterday, reviewed, no acute findings. Improving. Remains mildly hypoxic, give cautious supplemental oxygen, wean as able. Status: Acute (3) Metabolic acidosis: Problem comment: 06/06/25 AB.32/64/58/33 Patient's CO2 level is elevated, however, she appears more somnolent than can be explained by CO2 alone. Will review medications. Also significantly hypoxic. Decision made to start BiPAP. Pressures: IPAP 15/EPAP 5, FiO2 50%. 06/07 - resolved. Doing well off BiPAP this morning. Status: Acute (4) GIRISH (obstructive sleep apnea): Status: Chronic (5) Obesity hypoventilation syndrome: Status: Acute (6) Diabetes type 2: Problem comment: Diet controlled. No evidence of hypoglycemia. Regular diet today. Continue accuchecks with ISS, change to ACHS. Monitor. Status: Chronic (7) Right heart failure: Problem comment: 06/06/25 Given prolonged history of poorly controlled sleep apnea and significant obesity, patient likely has right heart failure if not biventricular failure. Check echocardiogram in a.m. Son endorse she is on diuretics though dose is not clear as yet. Will give her a stat dose of furosemide 40 mg IV. 06/07 - ECHO pending. Received 1/3 doses of IV furosemide. Will give one more dose, then stop IV furosemide and restart her usual oral furosemide tomorrow. Monitor Cr. Status: Chronic (8) Weakness: Problem comment: PT and OT evaluation now that patient is more awake. MOCA. Status: Acute (9) Renal cyst: Problem comment: - Seen on CT chest 06/06/25, further w/u as outpatient Status: Acute Total Time Spent Total Time Spent: Today I spent 50 minutes seeing the patient, discussing with the patient's family, reviewing [facility] and EPIC notes/diagnostics/labs, discussing the care plan with our care team that includes social work, PT/OT, pharmacy, RT, residential and documenting my impressions and plan in the medical record. Subjective Time Seen by Provider: 09:20 Date Seen: 06/07/25 Interval history: Trudi remained somnolent overnight. This morning her son, Tremaine, and [id number], December, are here. They live next door to Trudi and check on her frequently. They tell me that she has had sleep apnea for years and has times over the years that she will get off her sleep cycle and will be somnolent for a few days to weeks until she gets back on schedule. That appeared to be what was going on 2 weeks ago when she had a few hours of sleepiness each day, but then she became very sleepy and more difficult to wake starting Tuesday and her family thinks she fell because she fell asleep while walking. By evening, they were unable to get her to her bed from her chair because she couldn't stay awake enough to get up, so they brought her in. She does not spend anytime outdoors and hasn't traveled. She has been working with PT for generalized weakness/deconditioning. While I was examining her, we took off her BiPAP to examine her face and she opened her eyes and spoke more clearly. She then stayed awake enough to converse. She says her brain has been goofy. She has pain in both knees today. Her family also tells me that she has dementia and they have considered putting baby monitors in her house. Exam Narrative: Exam Narrative: General: No acute distress. Initially was somnolent while on BiPAP, but when we took this off, she woke up and then was awake, alert, oriented x3. No pallor. No jaundice. HEENT: Normocephalic atraumatic. Pupils equally round and reactive to light and accommodation. Oropharynx clear. Mucous membranes dry. Large amount of wax in the ear canals bilaterally, I was able to visualize the TMs however. TMs are pearly lyles bilaterally. Cardiovascular: Regular rate and rhythm. No murmurs, gallops, or rubs. Respiratory: Clear to auscultation bilaterally. No wheezes or crackles. Abdomen: Bowel sounds present. Soft, nondistended, nontender. Extremities: No lower extremity edema. Neuro: Cranial nerves 2-12 are intact. Extraocular movements are full. No nystagmus. No facial asymmetry. Tongue is midline. Strength is 4/5 in her left lower extremity. Strength is 5/5 in her 3 extremities. Light touch sensation is diminished in the left lower extremity, intact in the face and other extremities. Const: Vital Signs, click to edit/add: Vital Signs - 24 hr 06/06/25 22:42 06/06/25 22:42 06/06/25 22:48 Temperature 98.9 F Pulse Rate 61 Pulse Rate [Pulse Oximeter] Pulse Rate [Right Pulse Oximeter] 65 Respiratory Rate 18 18 Blood Pressure 139/69 Blood Pressure [Ri ght Arm] Blood Pressure [Ri ght Upper Arm] 139/96 H Pulse Oximetry 83 L 83 L 95 Oxygen Delivery Me thod Room Air Room Air Nasal Cannula Oxygen Flow Rate 2 Fraction of Inspir ed Oxygen 06/06/25 22:50 06/06/25 23:10 06/06/25 23:20 Temperature Pulse Rate Pulse Rate [Pulse Oximeter] Pulse Rate [Right Pulse Oximeter] Respiratory Rate 19 10 L 14 Blood Pressure Blood Pressure [Ri ght Arm] Blood Pressure [Ri ght Upper Arm] Pulse Oximetry 98 95 Oxygen Delivery Me thod Oxygen Flow Rate Fraction of Inspir ed Oxygen 06/06/25 23:33 06/06/25 23:47 06/06/25 23:50 Temperature Pulse Rate 63 65 Pulse Rate [Pulse Oximeter] Pulse Rate [Right Pulse Oximeter] Respiratory Rate 12 9 L Blood Pressure 131/55 L Blood Pressure [Ri ght Arm] Blood Pressure [Ri ght Upper Arm] Pulse Oximetry 95 94 94 Oxygen Delivery Me thod Nasal Cannula Room Air Oxygen Flow Rate 1 Fraction of Inspir ed Oxygen 06/07/25 00:00 06/07/25 00:03 06/07/25 00:03 Temperature Pulse Rate 67 Pulse Rate [Pulse Oximeter] Pulse Rate [Right Pulse Oximeter] Respiratory Rate 13 18 18 Blood Pressure Blood Pressure [Ri ght Arm] Blood Pressure [Ri ght Upper Arm] Pulse Oximetry 95 88 88 Oxygen Delivery Me thod Room Air Oxygen Flow Rate Fraction of Inspir ed Oxygen 06/07/25 00:03 06/07/25 00:10 06/07/25 00:20 Temperature Pulse Rate Pulse Rate [Pulse Oximeter] Pulse Rate [Right Pulse Oximeter] Respiratory Rate 18 4 L 5 L Blood Pressure Blood Pressure [Ri ght Arm] Blood Pressure [Ri ght Upper Arm] Pulse Oximetry 88 91 84 L Oxygen Delivery Me thod Oxygen Flow Rate Fraction of Inspir ed Oxygen 06/07/25 00:30 06/07/25 00:33 06/07/25 00:40 Temperature Pulse Rate Pulse Rate [Pulse Oximeter] Pulse Rate [Right Pulse Oximeter] Respiratory Rate 0 L 10 L 8 L Blood Pressure Blood Pressure [Ri ght Arm] Blood Pressure [Ri ght Upper Arm] Pulse Oximetry 85 L 81 L 95 Oxygen Delivery Me thod Oxygen Flow Rate Fraction of Inspir ed Oxygen 06/07/25 00:50 06/07/25 01:00 06/07/25 01:03 Temperature Pulse Rate Pulse Rate [Pulse Oximeter] Pulse Rate [Right Pulse Oximeter] Respiratory Rate 12 11 L 10 L Blood Pressure Blood Pressure [Ri ght Arm] Blood Pressure [Ri ght Upper Arm] Pulse Oximetry 91 93 90 Oxygen Delivery Me thod Oxygen Flow Rate Fraction of Inspir ed Oxygen 06/07/25 01:10 06/07/25 01:21 06/07/25 01:30 Temperature Pulse Rate Pulse Rate [Pulse Oximeter] Pulse Rate [Right Pulse Oximeter] Respiratory Rate 7 L 11 L 16 Blood Pressure Blood Pressure [Ri ght Arm] Blood Pressure [Ri ght Upper Arm] Pulse Oximetry 95 96 95 Oxygen Delivery Me thod Oxygen Flow Rate Fraction of Inspir ed Oxygen 06/07/25 01:40 06/07/25 01:50 06/07/25 02:00 Temperature Pulse Rate Pulse Rate [Pulse Oximeter] Pulse Rate [Right Pulse Oximeter] Respiratory Rate 18 9 L 15 Blood Pressure Blood Pressure [Ri ght Arm] Blood Pressure [Ri ght Upper Arm] Pulse Oximetry 96 96 96 Oxygen Delivery Me thod Oxygen Flow Rate Fraction of Inspir ed Oxygen 06/07/25 02:10 06/07/25 02:10 06/07/25 02:10 Temperature 97.6 F Pulse Rate Pulse Rate [Pulse Oximeter] 65 Pulse Rate [Right Pulse Oximeter] Respiratory Rate 16 16 14 Blood Pressure Blood Pressure [Ri ght Arm] 162/69 H Blood Pressure [Ri ght Upper Arm] Pulse Oximetry 98 99 90 Oxygen Delivery Me thod Room Air Oxygen Flow Rate Fraction of Inspir ed Oxygen 06/07/25 03:12 06/07/25 04:00 06/07/25 04:24 Temperature Pulse Rate 50 L Pulse Rate [Pulse Oximeter] 50 L Pulse Rate [Right Pulse Oximeter] Respiratory Rate 16 Blood Pressure Blood Pressure [Ri ght Arm] 139/63 Blood Pressure [Ri ght Upper Arm] Pulse Oximetry 86 L 90 Oxygen Delivery Me thod BiPAP Oxygen Flow Rate Fraction of Inspir ed Oxygen 06/07/25 06:00 06/07/25 07:00 06/07/25 07:03 Temperature 97.7 F Pulse Rate 49 L Pulse Rate [Pulse Oximeter] 50 L 51 L Pulse Rate [Right Pulse Oximeter] Respiratory Rate 16 20 Blood Pressure Blood Pressure [Ri ght Arm] 149/68 H 171/75 H Blood Pressure [Ri ght Upper Arm] Pulse Oximetry 93 92 Oxygen Delivery Me thod BiPAP BiPAP Oxygen Flow Rate Fraction of Inspir ed Oxygen 21 21 06/07/25 07:54 06/07/25 08:00 06/07/25 08:00 Temperature 97.9 F Pulse Rate 51 L Pulse Rate [Pulse Oximeter] 49 L Pulse Rate [Right Pulse Oximeter] Respiratory Rate 12 Blood Pressure Blood Pressure [Ri ght Arm] 176/79 H Blood Pressure [Ri ght Upper Arm] Pulse Oximetry 93 93 Oxygen Delivery Me thod BiPAP Oxygen Flow Rate Fraction of Inspir ed Oxygen 06/07/25 08:51 06/07/25 08:54 06/07/25 10:30 Temperature 97.9 F Pulse Rate Pulse Rate [Pulse Oximeter] 61 Pulse Rate [Right Pulse Oximeter] Respiratory Rate 16 Blood Pressure Blood Pressure [Ri ght Arm] 182/90 H Blood Pressure [Ri ght Upper Arm] Pulse Oximetry 94 Oxygen Delivery Me thod BiPAP Nasal Cannula Oxygen Flow Rate 1 Fraction of Inspir ed Oxygen 21 21 Labs Labs: Laboratory Results - last 24 hr 06/06/25 06/06/25 06/07/25 00:00 23:20 00:00 WBC 8.13 RBC 3.34 L Hgb 10.3 L Hct 32.2 L MCV 96 MCH 31 MCHC 32 RDW Coeff of Juan 13.0 Plt Count 164 Neut % (Auto) 70.3 Lymph % (Auto) 19.1 L [place] % (Auto) 9.1 Eos % (Auto) 1.2 Baso % (Auto) 0.2 Neut # (Auto) 5.71 Lymph # (Auto) 1.60 [place] # (Auto) 0.70 Eos # (Auto) 0.10 Baso # (Auto) 0.02 Abs Immat Gran (auto) 0.01 Imm/Tot Granulo (auto) 0.1 ABG pH ABG pCO2 ABG pO2 ABG HCO3 ABG Total CO2 ABG O2 Saturation ABG Base Excess Sodium 138 Potassium 4.1 Chloride 99 Carbon Dioxide 35 H Anion Gap 4 L BUN 40 H Creatinine 1.6 H Estimated Creat Clear 24.50 Estimated GFR 32 Glucose 108 Lactate 0.6 Calcium 8.9 Magnesium 2.0 Total Bilirubin 0.7 AST 31 ALT 15 Alkaline Phosphatase 83 Troponin I 0.01 NT-Pro-B Natriuret Pep Total Protein 6.9 Albumin 3.8 TSH Urine Color Yellow Urine Appearance Clear Urine pH 5.5 Ur Specific [place] 1.025 Urine Protein 3+ A Urine Glucose (UA) Negative Urine Ketones Negative Urine Blood Negative Urine Nitrite Negative Urine Bilirubin Negative Urine Urobilinogen 0.2 Ur Leukocyte Esterase Negative Urine RBC 2-5 A Urine WBC 0-2 Ur Squamous Epith Cells Few Urine Bacteria Few A Urine Mucus Few A Urine Opiates Screen Negative Ur Oxycodone Screen Negative Urine Methadone Screen Negative Ur Barbiturates Screen Negative U Tricyclic Antidepress Negative Ur Phencyclidine Scrn Negative Ur Amphetamines Screen Negative U Methamphetamines Scrn Negative U Benzodiazepines Scrn Negative Urine Cocaine Screen Negative U Marijuana (THC) Screen Negative Ur Drug Screen Comment See Note SARS-CoV-2 (PCR) Negative SARS-CoV-2 Influenza Type A (PCR) Negative PCR FLU A Influenza Type B (PCR) Negative PCR FLU B RSV (PCR) Negative PCR RSV Lab Acknowledgement 06/07/25 06/07/25 06/07/25 03:30 05:10 06:40 WBC RBC Hgb Hct MCV MCH MCHC RDW Coeff of Juan Plt Count Neut % (Auto) Lymph % (Auto) [place] % (Auto) Eos % (Auto) Baso % (Auto) Neut # (Auto) Lymph # (Auto) [place] # (Auto) Eos # (Auto) Baso # (Auto) Abs Immat Gran (auto) Imm/Tot Granulo (auto) ABG pH 7.32 L 7.34 L 7.37 ABG pCO2 64 H* 62 H* 59 H ABG pO2 58.2 L 60.0 L 57.6 L ABG HCO3 33 H 33 H 34 H ABG Total CO2 32 H 31 H 32 H ABG O2 Saturation 90 L 91 L 91 L ABG Base Excess 5.8 H 5.7 H 7.3 H Sodium 139 Potassium 3.8 Chloride 100 Carbon Dioxide 35 H Anion Gap 4 L BUN 38 H Creatinine 1.6 H Estimated Creat Clear 24.50 Estimated GFR 32 Glucose 110 Lactate Calcium 8.9 Magnesium 2.0 Total Bilirubin AST ALT Alkaline Phosphatase Troponin I NT-Pro-B Natriuret Pep 904 H Total Protein Albumin TSH 13.000 H Urine Color Urine Appearance Urine pH Ur Specific [place] Urine Protein Urine Glucose (UA) Urine Ketones Urine Blood Urine Nitrite Urine Bilirubin Urine Urobilinogen Ur Leukocyte Esterase Urine RBC Urine WBC Ur Squamous Epith Cells Urine Bacteria Urine Mucus Urine Opiates Screen Ur Oxycodone Screen Urine Methadone Screen Ur Barbiturates Screen U Tricyclic Antidepress Ur Phencyclidine Scrn Ur Amphetamines Screen U Methamphetamines Scrn U Benzodiazepines Scrn Urine Cocaine Screen U Marijuana (THC) Screen Ur Drug Screen Comment SARS-CoV-2 (PCR) Influenza Type A (PCR) Influenza Type B (PCR) RSV (PCR) Lab Acknowledgement Test Added
--- NOTE | 2025-06-07 11:10 | CRLHL7_ITS ---
For Patients: As a result of the Century Cures Act, medical imaging exams and procedure reports are released immediately into your electronic medical record. You may view this report before your referring provider. If you have questions, please contact your health care provider. Indication: Altered mental status. Leg weakness. Technique: Multiplanar, multisequence MRI of the brain was performed without and with intravenous contrast. Contrast: 20 cc Dotarem. Comparison: CT head 06/06/2025. Findings: Mild to moderate patient motion related artifact, most notably on the postcontrast sequences. Mild thinning of the corpus callosum. The pituitary gland and clivus appear intact. There is no restricted diffusion. No intracranial hemorrhage. No hydrocephalus. There is a large right posterior fossa arachnoid cyst which measures 7.4 x 6.3 cm (TR x AP x CC). Results in severe mass effect upon the right cerebellum, with leftward midline shift of the 4th ventricle. No enhancing intracranial mass. Moderate parenchymal volume loss. Myko-ie-owhadpla T2 FLAIR hyperintense foci within the subcortical and periventricular white matter, favored to represent chronic ischemic microvascular disease. Major intracranial vascular flow voids appear grossly intact. Both globes are preserved. Impression: 1. No acute/subacute infarct. 2. Stable large right posterior fossa arachnoid cyst with severe mass effect and mild leftward midline shift of the 4th ventricle. 3. [id number] chronic ischemic microvascular disease. Dictated by Francis Jack MD @ 06/07/2025 1:44:08 PM (Electronically Signed)
[2025-06-07] MEDS: ACETAMINOPHEN 325 MG TABLET PO (11:48)
[2025-06-07 13:13] LABS: Free T4 Free Thyroxine* 0.86 ng/dL (0.70-1.85)
[2025-06-07 13:45] LABS: Chloride* 97 mmol/L (96-114); Sodium* 139 mmol/L (135-149)
[2025-06-07 13:46] LABS: Potassium* 3.7 mmol/L (3.6-5.1)
[2025-06-07 13:49] LABS: Anion Gap 7 mEq/L (7-15); Blood Urea Nitrogen* 39 mg/dL (7-30); Calcium* 9.1 mg/dL (8.4-10.6); Carbon Dioxide* 35 mmol/L (20-32); Creatinine* 1.6 mg/dL (0.5-1.5); Est. Creatinine Clearance* 24.50; Estimated Glomerular Filt Rate 32 ml/min; Glucose* 149 mg/dL (60-115)
--- NOTE | 2025-06-07 14:43 | RESP.RT ---
Patient remains off Bipap and tolerating 1 lpm nasal cannula, no respiratory distress noted.
[2025-06-07] MEDS: PERFLUTREN LIPID MICROSPHERES 2 ML VIAL IVP (14:49)
[2025-06-07] MEDS: ATORVASTATIN CALCIUM 40 MG TABLET 80 MG PO (18:09)
[2025-06-07] MEDS: HYDRALAZINE 10 MG TABLET 20 MG PO (20:46)
--- NOTE | 2025-06-07 22:46 | PC.NURSE ---
patient transfers via pivot and walker. she is currently on 1 liter via NC, LS clear and diminished. Telemetry shows NSR, pulse ox on and sats 95%.Patients sosa is patent, draining clear yellow. Patient is oriented to person and place. Nystatin cream and powder applied as ordered. son and daughter in law at bedside most of the shift.
[2025-06-07] MEDS: ACETAMINOPHEN 500 MG TABLET 1000 MG PO (23:34)
[2025-06-07] MEDS: [UNRECOGNIZED DRUG - OTHER] 2 EACH TOPICAL (23:53)
[2025-06-08] VITALS (7 sets, daily range): BP systolic 123–158; BP diastolic 60–87; PULSE 62–91; RESP 14–20; TEMP 36.4–36.9; O2SAT 90–95
[2025-06-08] MEDS: HEPARIN 5,000 UNIT/0.5 ML INJ 5000 UNIT SUBCUT ×3 (04:43→21:20)
[2025-06-08 06:07] LABS: Hematocrit* 33.3 % (33.0-51.0); Hemoglobin* 10.6 gm/dL (12.0-16.0); Immature Granulocytes Abs Auto 0.01 K/uL (0.00-0.30); Immature Granulocytes Pct Auto 0.1 %; Mean Corpuscular HGB Conc 32 gm/dL (32-36); Mean Corpuscular Hemoglobin 31 pg (26-34); Mean Corpuscular Volume 97 fL (80-100); RDW Coefficient of Variation % 12.9 % (11.5-15.5); Red Blood Count* 3.43 m/uL (4.00-5.20); White Blood Count* 9.34 K/uL (4.50-11.00)
--- NOTE | 2025-06-08 06:18 | PC.NURSE ---
end of shift: Pt. AOx3. VSS. 1L O2 w/ NC. Pt. Campo in place. PRN pain med given for knee pain; see EMAR. Pt. requires repetition. Pt. able to roll for repositioning and ina checks as needed. x2 assist. Pt. resting in bed; call light w/i reach.
[2025-06-08 06:19] LABS: Albumin* 3.7 g/dL (3.3-5.0); Chloride* 96 mmol/L (96-114); Sodium* 140 mmol/L (135-149)
[2025-06-08 06:20] LABS: Potassium* 3.8 mmol/L (3.6-5.1)
[2025-06-08 06:22] LABS: Alanine Aminotransferase* 14 U/L (4-35); Alkaline Phosphatase* 91 U/L (40-150); Anion Gap 6 mEq/L (7-15); Aspartate Amino Transferase* 26 U/L (12-35); Bilirubin Total* 0.6 mg/dL (0.1-1.5); Blood Urea Nitrogen* 45 mg/dL (7-30); Carbon Dioxide* 38 mmol/L (20-32); Creatinine* 1.7 mg/dL (0.5-1.5); Est. Creatinine Clearance* 23.06; Estimated Glomerular Filt Rate 29 ml/min; Total Protein* 7.0 g/dL (6.0-8.3)
[2025-06-08 06:23] LABS: Calcium* 8.7 mg/dL (8.4-10.6); Glucose* 114 mg/dL (60-115)
[2025-06-08 06:25] LABS: Lymphocytes Absolute Auto 1.60 K/uL (0.90-2.90); Slide Review Reflex No
[2025-06-08] MEDS: LEVOTHYROXINE 100 MCG TABLET PO (06:41)
--- NOTE | 2025-06-08 07:52 | CRLHL7_ITS ---
For Patients: As a result of the Cures Act, medical imaging exams and procedure reports are released immediately into your electronic medical record. You may view this report before your referring provider. If you have questions, please contact your health care provider. INDICATION: Posttraumatic pain. Weakness. COMPARISON: None available. TECHNIQUE: views of the two left knee. FINDINGS: Mineralization: Normal. Alignment: Normal. Bones and Joints: No fracture is identified. Patellofemoral and medial tibiofemoral osteoarthrosis. Soft Tissues: Small joint effusion. No focal periarticular soft tissue swelling. IMPRESSION: No acute traumatic injury is identified. Osteoarthrosis and joint effusion. Dictated by Victorino Robles MD @ 06/08/2025 9:23:28 AM (Electronically Signed)
--- NOTE | 2025-06-08 07:52 | CRLHL7_ITS ---
For Patients: As a result of the Century Cures Act, medical imaging exams and procedure reports are released immediately into your electronic medical record. You may view this report before your referring provider. If you have questions, please contact your health care provider. INDICATION: Posttraumatic pain. Weakness. COMPARISON: None available. TECHNIQUE: Three views of the left ankle. FINDINGS: Mineralization: Normal. Alignment: Normal. Bones and Joints: No fracture is identified. Posterior calcaneal spurs are noted incidentally. Soft Tissues: No significant soft tissue findings. The radiopaque marker is imbedded within the patient`s sock limit evaluation of the soft tissues to some degree. Arterial calcifications are noted incidentally. IMPRESSION: No acute traumatic injury is identified. Dictated by Victorino Robles MD @ 06/08/2025 9:24:53 AM (Electronically Signed)
--- NOTE | 2025-06-08 07:53 | CRLHL7_ITS ---
For Patients: As a result of the Cures Act, medical imaging exams and procedure reports are released immediately into your electronic medical record. You may view this report before your referring provider. If you have questions, please contact your health care provider. INDICATION: Hypoxia. COMPARISON: 08/14/2021 TECHNIQUE: Single AP view of the chest. FINDINGS: Medical Devices: None. Lung Volumes: Adequate inspiration. No significant atelectasis. Lungs: Clear lungs. Pleura and Pleural spaces: No significant pleural effusion. No pneumothorax. Mediastinum: Normal cardiomediastinal silhouette. Bony Thorax and Soft Tissues: No significant incidental findings. IMPRESSION: No acute findings. Dictated by Victorino Robles MD @ 06/08/2025 9:22:31 AM (Electronically Signed)
[2025-06-08] MEDS: oxyBUTYnin chloride 5 MG TAB.ER.24 PO (08:57)
[2025-06-08] MEDS: HYDRALAZINE 10 MG TABLET 20 MG PO ×2 (08:57→21:19)
[2025-06-08] MEDS: VALSARTAN 80 MG TABLET PO (08:57)
[2025-06-08] MEDS: FUROSEMIDE 40 MG TABLET PO (08:57)
[2025-06-08] MEDS: NYSTATIN CREAM 30 GM 1 APPLIC TOPICAL ×3 (08:58→21:21)
[2025-06-08] MEDS: MULTIVITAMIN/MINERALS 1 TABLET 1 TAB PO (08:58)
[2025-06-08] MEDS: SODIUM CHLORIDE 0.9 % (FLUSH) 10 ML SYRINGE 5 ML IVF ×2 (08:58→08:59)
[2025-06-08] MEDS: NYSTATIN POWDER 1 APPLIC TOPICAL ×2 (08:58→21:21)
--- NOTE | 2025-06-08 17:52 | P.IMPN_ITS ---
Assessment and Plan Assessment and plan (1) Acute metabolic encephalopathy: Problem comment: - Resolved. Cause uncertain. Certainly has some somnolence periodically due to partially treated GIRISH (uses CPAP part of each night), with hypercapnea on admission that was at least contributing to AMS, it is unclear if it was the cause or worsened by GIRISH in setting of somnolence for a different reason. CT head, admission labs including electrolytes, lactate, LFTs, glucose, WBC, UA, Utox, COVID/flu/RSV reassuring. Patient has not had travel or mosquito/tick exposure. EKG and trop from admission reassuring. ECHO 06/07 showed EF 60-65%, RV function is normal. MRI reassuring. Since she is back to baseline and no mosquito/tick exposure, leukocytosis, fever, or headache, I do not think an LP would be helpful at this point. Status: Acute (2) Acute hypercapnic respiratory failure: Problem comment: CT chest without contrast yesterday, reviewed, no acute findings. I suspect this is from obesity hypoventilation syndrome. Improving. Remains mildly hypoxic, give cautious supplemental oxygen, wean as able. Status: Acute (3) Metabolic acidosis: Problem comment: 06/06/25 AB.32/64/58/33 Patient's CO2 level is elevated, however, she appears more somnolent than can be explained by CO2 alone. Will review medications. Also significantly hypoxic. Decision made to start BiPAP. Pressures: IPAP 15/EPAP 5, FiO2 50%. 06/07 - resolved. Doing well off BiPAP this morning. Status: Acute (4) GIRISH (obstructive sleep apnea): Problem comment: Use home CPAP at night. Status: Chronic (5) Obesity hypoventilation syndrome: Problem comment: Encourage HOB elevation at night. Status: Acute (6) Diabetes type 2: Problem comment: Diet controlled. No evidence of hypoglycemia. Regular diet today. HgbA1C 4 months ago at [facility] was 6%. BG has been well controlled here. Stop accuchecks. Status: Chronic (7) Right heart failure: Problem comment: 06/06/25 Given prolonged history of poorly controlled sleep apnea and significant obesity, patient likely has right heart failure if not biventricular failure. Check echocardiogram in a.m. Son endorse she is on diuretics though dose is not clear as yet. Will give her a stat dose of furosemide 40 mg IV. 06/07 - ECHO pending. Received 1/3 doses of IV furosemide. Will give one more dose, then stop IV furosemide and restart her usual oral furosemide tomorrow. Monitor Cr. - 06/08 ECHO showed EF 60-65%, RV function is normal. Status: Chronic (8) Weakness: Problem comment: PT and OT evaluation now that patient is more awake. MOCA is 1030. Status: Acute (9) Renal cyst: Problem comment: - Seen on CT chest 06/06/25, further w/u as outpatient Status: Acute Total Time Spent Total Time Spent: Today I spent 35 minutes seeing the patient, discussing with the patient's family, reviewing [facility] and EPIC notes/diagnostics/labs, discussing the care plan with our care team that includes social work, PT/OT, pharmacy, RT, penitentiary and documenting my impressions and plan in the medical record. Subjective Time Seen by Provider: 07:50 Date Seen: 06/08/25 Interval history: More alert overnight and this morning. Pat complains of left knee and ankle pain. Her son and [id number] were here today. They brought her home CPAP. They are understanding of the recommendation for 18/04 supervision. They are hopeful that she will improve with some rehab and would like her to go to a penitentiary facility for short-term rehab stay while they consider their options for what is next. They are hoping to take her home after that, but are agreeable to consider assisted living or memory care if needed. Exam Narrative: Exam Narrative: General: No acute distress. Awake, alert, oriented x3. No pallor. No jaundice. Cardiovascular: Regular rate and rhythm. No murmurs, gallops, or rubs. Respiratory: Clear to auscultation bilaterally. No wheezes or crackles. Abdomen: Bowel sounds present. Soft, nondistended, nontender. Extremities: No lower extremity edema. Neuro: Strength is 5/5 in all 4 extremities. Light touch sensation is diminished in the left lower extremity below the knee, intact in the upper left leg, face and other extremities. Const: Vital Signs, click to edit/add: Vital Signs - 24 hr 06/07/25 19:00 06/07/25 22:39 06/07/25 23:00 Temperature 97.2 F L Pulse Rate 61 Pulse Rate [Pulse Oximeter] 67 Respiratory Rate 18 14 Blood Pressure [Ri ght Arm] 126/52 L Pulse Oximetry 92 Oxygen Delivery Me thod Nasal Cannula Oxygen Flow Rate 1 06/07/25 23:08 06/08/25 03:02 06/08/25 07:00 Temperature 97.9 F 97.9 F Pulse Rate 67 Pulse Rate [Pulse Oximeter] 65 62 Respiratory Rate 14 14 Blood Pressure [Ri ght Arm] 150/87 H 150/87 H Pulse Oximetry 95 95 Oxygen Delivery Me thod Nasal Cannula Nasal Cannula Oxygen Flow Rate 1 1.5 06/08/25 07:00 06/08/25 07:00 06/08/25 08:00 Temperature 97.5 F L Pulse Rate Pulse Rate [Pulse Oximeter] 64 64 Respiratory Rate 20 20 Blood Pressure [Ri ght Arm] 158/85 H Pulse Oximetry 94 90 Oxygen Delivery Me thod Nasal Cannula Oxygen Flow Rate 1 06/08/25 11:00 06/08/25 15:00 06/08/25 15:00 Temperature 98.5 F Pulse Rate 71 Pulse Rate [Pulse Oximeter] 65 65 Respiratory Rate 20 20 Blood Pressure [Ri ght Arm] 123/60 Pulse Oximetry 94 Oxygen Delivery Me thod Room Air Oxygen Flow Rate 06/08/25 15:00 Temperature 98.5 F Pulse Rate Pulse Rate [Pulse Oximeter] 68 Respiratory Rate 20 Blood Pressure [Ri ght Arm] 142/71 H Pulse Oximetry 94 Oxygen Delivery Me thod Room Air Oxygen Flow Rate Labs Labs: Laboratory Results - last 24 hr 06/08/25 05:35 WBC 9.34 RBC 3.43 L Hgb 10.6 L Hct 33.3 MCV 97 MCH 31 MCHC 32 RDW Coeff of Juan 12.9 Plt Count 172 Neut % (Auto) 72.3 H Lymph % (Auto) 16.6 L Glynn % (Auto) 9.5 Eos % (Auto) 1.4 Baso % (Auto) 0.1 Neut # (Auto) 6.80 Lymph # (Auto) 1.60 Glynn # (Auto) 0.90 Eos # (Auto) 0.13 Baso # (Auto) 0.01 Abs Immat Gran (auto) 0.01 Imm/Tot Granulo (auto) 0.1 Sodium 140 Potassium 3.8 Chloride 96 Carbon Dioxide 38 H Anion Gap 6 L BUN 45 H Creatinine 1.7 H Estimated Creat Clear 23.06 Estimated GFR 29 Glucose 114 Calcium 8.7 Total Bilirubin 0.6 AST 26 ALT 14 Alkaline Phosphatase 91 Total Protein 7.0 Albumin 3.7
[2025-06-08] MEDS: ATORVASTATIN CALCIUM 40 MG TABLET 80 MG PO (18:08)
--- NOTE | 2025-06-08 18:41 | PC.NURSE ---
End of shift report [id number]: Alert and oriented x 3, intermittent confusion to time/date. Pleasant and cooperative. Denies any SOB or chest pain. Patient reporting pain to left knee and ankle, imaging ordered and MD following. Trial off oxygen started at 0900 as patient O2 sats were 96% on 1L per NC. patient has tolerated room air this shift and has been able to maintain O2 sats >88%. Transfers with assist of 1-2 and ambulated with walker, GB and Ax1. Campo catheter discontinued, patient has had 2 voids post catheter removal. Right groin/pannus cleansed gently, nystatin and interdry applied per orders. Skin is red and inflamed in groin and laterally has shearing of skin. Blood glucose testing discontinued per verbal order from Dr. Londono.
[2025-06-08] MEDS: ACETAMINOPHEN 500 MG TABLET 1000 MG PO (19:06)
[2025-06-09] VITALS (9 sets, daily range): BP systolic 98–148; BP diastolic 56–88; PULSE 64–77; RESP 16–20; TEMP 36.2–36.9; O2SAT 89–991
[2025-06-09] MEDS: HEPARIN 5,000 UNIT/0.5 ML INJ 5000 UNIT SUBCUT ×3 (05:30→20:11)
[2025-06-09 07:04] LABS: Hematocrit* 33.8 % (33.0-51.0); Hemoglobin* 10.5 gm/dL (12.0-16.0); Immature Granulocytes Abs Auto 0.01 K/uL (0.00-0.30); Immature Granulocytes Pct Auto 0.1 %; Mean Corpuscular HGB Conc 31 gm/dL (32-36); Mean Corpuscular Hemoglobin 30 pg (26-34); Mean Corpuscular Volume 98 fL (80-100); RDW Coefficient of Variation % 13.1 % (11.5-15.5); Red Blood Count* 3.46 m/uL (4.00-5.20); White Blood Count* 8.43 K/uL (4.50-11.00)
[2025-06-09 07:17] LABS: Lymphocytes Absolute Auto 1.40 K/uL (0.90-2.90); Slide Review Reflex No
[2025-06-09 07:20] LABS: Albumin* 3.7 g/dL (3.3-5.0); Chloride* 96 mmol/L (96-114); Potassium* 3.7 mmol/L (3.6-5.1); Sodium* 138 mmol/L (135-149)
[2025-06-09 07:23] LABS: Alanine Aminotransferase* 14 U/L (4-35); Alkaline Phosphatase* 81 U/L (40-150); Anion Gap 4 mEq/L (7-15); Aspartate Amino Transferase* 25 U/L (12-35); Bilirubin Total* 0.7 mg/dL (0.1-1.5); Blood Urea Nitrogen* 46 mg/dL (7-30); Calcium* 8.8 mg/dL (8.4-10.6); Carbon Dioxide* 38 mmol/L (20-32); Creatinine* 1.8 mg/dL (0.5-1.5); Est. Creatinine Clearance* 21.78; Estimated Glomerular Filt Rate 27 ml/min; Glucose* 125 mg/dL (60-115); Total Protein* 6.9 g/dL (6.0-8.3)
[2025-06-09] MEDS: LEVOTHYROXINE 100 MCG TABLET PO (07:30)
--- NOTE | 2025-06-09 07:45 | PC.NURSE ---
Shift note ([id number]): Patient pleasant, alert and oriented. Per previous nurse pt was placed on O2 via NC due to air leaking around C-Pap mask and machine shutting off. During night O2 sats dipped below 80% on 2LPM via NC. O2 at 2 LPM via Oxymizer mask was applied at that time. O2 was given at 1-2LPM ?to keep sats above 88% the remainder of the night. Pt denied pain.?
[2025-06-09] MEDS: HYDRALAZINE 10 MG TABLET 20 MG PO ×2 (07:51→20:06)
[2025-06-09] MEDS: VALSARTAN 80 MG TABLET PO (07:51)
[2025-06-09] MEDS: MULTIVITAMIN/MINERALS 1 TABLET 1 TAB PO (07:51)
[2025-06-09] MEDS: oxyBUTYnin chloride 5 MG TAB.ER.24 PO (07:51)
[2025-06-09] MEDS: NYSTATIN CREAM 30 GM 1 APPLIC TOPICAL ×3 (07:52→20:12)
[2025-06-09] MEDS: SODIUM CHLORIDE 0.9 % (FLUSH) 10 ML SYRINGE 5 ML IVF ×3 (07:52→20:14)
[2025-06-09] MEDS: NYSTATIN POWDER 1 APPLIC TOPICAL ×2 (07:52→20:12)
--- NOTE | 2025-06-09 16:30 | RESP.RT ---
Pt Home CPAP unit checked again today, and it is functional. Night RNs report that it was not working. Pt is using a nasal mask, I wonder if she is a mouth breather. Please try to use unit again tonight.
--- NOTE | 2025-06-09 17:06 | PM.IMPN1 ---
Assessment and Plan Assessment and plan (1) Acute metabolic encephalopathy: Problem comment: - Resolved. Cause uncertain. Certainly has some somnolence periodically due to partially treated GIRISH (uses CPAP part of each night), with hypercapnea on admission that was at least contributing to AMS, it is unclear if it was the cause or worsened by GIRISH in setting of somnolence for a different reason. CT head, admission labs including electrolytes, lactate, LFTs, glucose, WBC, UA, Utox, COVID/flu/RSV reassuring. Patient has not had travel or mosquito/tick exposure. EKG and trop from admission reassuring. ECHO 06/07 showed EF 60-65%, RV function is normal. MRI reassuring. Since she is back to baseline and no mosquito/tick exposure, leukocytosis, fever, or headache, I do not think an LP would be helpful at this point. Status: Acute (2) Acute hypercapnic respiratory failure: Problem comment: CT chest without contrast yesterday, reviewed, no acute findings. I suspect this is from obesity hypoventilation syndrome. Improving. Remains mildly hypoxic, give cautious supplemental oxygen, wean as able. - 06/09 Satting well on RA today. Resolved. Status: Acute (3) Metabolic acidosis: Problem comment: 06/06/25 AB.32/64/58/33 Patient's CO2 level is elevated, however, she appears more somnolent than can be explained by CO2 alone. Will review medications. Also significantly hypoxic. Decision made to start BiPAP. Pressures: IPAP 15/EPAP 5, FiO2 50%. 06/07 - resolved. Doing well off BiPAP this morning. Status: Acute (4) GIRISH (obstructive sleep apnea): Problem comment: Use home CPAP at night. Status: Chronic (5) Obesity hypoventilation syndrome: Problem comment: Encourage HOB elevation at night. Status: Acute (6) Diabetes type 2: Problem comment: Diet controlled. No evidence of hypoglycemia. Regular diet today. HgbA1C 4 months ago at [facility] was 6%. BG has been well controlled here. Stop accuchecks. Status: Chronic (7) Right heart failure: Problem comment: 06/06/25 Given prolonged history of poorly controlled sleep apnea and significant obesity, patient likely has right heart failure if not biventricular failure. Check echocardiogram in a.m. Son endorse she is on diuretics though dose is not clear as yet. Will give her a stat dose of furosemide 40 mg IV. 06/07 - ECHO pending. Received 1/3 doses of IV furosemide. Will give one more dose, then stop IV furosemide and restart her usual oral furosemide tomorrow. Monitor Cr. - 06/08 ECHO showed EF 60-65%, RV function is normal. - 06/09 Cr mildly elevated. Hold tomorrow's furosemide. Status: Chronic (8) Weakness: Problem comment: PT and OT evaluated. MOCA is 07/25. Needs 18/04 supervision. Family agreeable to SNF for rehab. Status: Acute (9) Renal cyst: Problem comment: - Seen on CT chest 06/06/25, further w/u as outpatient Status: Acute Subjective Time Seen by Provider: 08:08 Date Seen: 06/09/25 Interval history: Gladys has no complaints. Exam Narrative: Exam Narrative: General: No acute distress. Awake, alert, oriented. No pallor. No jaundice. Cardiovascular: Regular rate and rhythm. No murmurs, gallops, or rubs. Respiratory: Clear to auscultation bilaterally. No wheezes or crackles. Abdomen: Bowel sounds present. Soft, nondistended, nontender. Const: Vital Signs, click to edit/add: Vital Signs - 24 hr 06/08/25 19:00 06/08/25 23:30 06/09/25 00:39 Temperature 97.5 F L 97.8 F Pulse Rate 71 Pulse Rate [Pulse Oximeter] 91 70 Respiratory Rate 16 17 Blood Pressure [Ri ght Arm] 143/66 H 142/67 H Pulse Oximetry 91 94 Oxygen Delivery Me thod Room Air Nasal Cannula Oxygen Flow Rate 1 06/09/25 03:59 06/09/25 07:00 06/09/25 07:00 Temperature 98.5 F 97.8 F Pulse Rate 77 Pulse Rate [Pulse Oximeter] 67 69 Respiratory Rate 19 20 Blood Pressure [Ri ght Arm] 140/68 H 128/64 Pulse Oximetry 99 991 H Oxygen Delivery Me thod Nasal Cannula Room Air Oxygen Flow Rate 1 06/09/25 07:00 06/09/25 08:00 06/09/25 11:00 Temperature 97.1 F L Pulse Rate Pulse Rate [Pulse Oximeter] 69 66 Respiratory Rate 20 16 Blood Pressure [Ri ght Arm] 135/64 Pulse Oximetry 89 96 Oxygen Delivery Me thod Room Air Oxygen Flow Rate 06/09/25 15:00 06/09/25 15:00 06/09/25 15:00 Temperature 97.5 F L Pulse Rate 65 Pulse Rate [Pulse Oximeter] 65 65 Respiratory Rate 18 18 [facility] 98/67 Pulse Oximetry 91 Oxygen Delivery Me thod Room Air Oxygen Flow Rate Labs Labs: Laboratory Results - last 24 hr 06/09/25 06:49 WBC 8.43 RBC 3.46 L Hgb 10.5 L Hct 33.8 MCV 98 MCH 30 MCHC 31 L RDW Coeff of Juan 13.1 Plt Count 161 Neut % (Auto) 71.9 Lymph % (Auto) 17.2 L Lyon % (Auto) 9.6 Eos % (Auto) 1.1 Baso % (Auto) 0.1 Neut # (Auto) 6.06 Lymph # (Auto) 1.40 Lyon # (Auto) 0.80 Eos # (Auto) 0.09 Baso # (Auto) 0.01 Abs Immat Gran (auto) 0.01 Imm/Tot Granulo (auto) 0.1 Sodium 138 Potassium 3.7 Chloride 96 Carbon Dioxide 38 H Anion Gap 4 L BUN 46 H Creatinine 1.8 H Estimated Creat Clear 21.78 Estimated GFR 27 Glucose 125 H Calcium 8.8 Total Bilirubin 0.7 AST 25 ALT 14 Alkaline Phosphatase 81 Total Protein 6.9 Albumin 3.7
[2025-06-09] MEDS: ATORVASTATIN CALCIUM 40 MG TABLET 80 MG PO (17:53)
--- NOTE | 2025-06-09 22:43 | PC.NURSE ---
MD Londono provided order for Lasix and MD Torres gave verbal order to start medication tomorrow (06/10/25) per order that specifies to give every Tuesday.
[2025-06-10] VITALS (9 sets, daily range): BP systolic 133–190; BP diastolic 59–110; PULSE 66–78; RESP 18–20; TEMP 36.3–36.9; O2SAT 88–97
--- NOTE | 2025-06-10 04:21 | PC.NURSE ---
Pt rested well this night. UP A1 to bedside commode. Pt needed Oxy mask with 2.5 liters to maintain sats while sleeping. Pt owned cpap was not working properly. Vs unremarkable. Afebrile. Pt cognition in tact.
[2025-06-10] MEDS: HEPARIN 5,000 UNIT/0.5 ML INJ 5000 UNIT SUBCUT ×3 (04:41→21:27)
[2025-06-10] MEDS: LEVOTHYROXINE 100 MCG TABLET PO (06:22)
[2025-06-10 08:14] LABS: Chloride* 95 mmol/L (96-114); Potassium* 4.0 mmol/L (3.6-5.1); Sodium* 136 mmol/L (135-149)
[2025-06-10 08:17] LABS: Blood Urea Nitrogen* 47 mg/dL (7-30); Creatinine* 1.5 mg/dL (0.5-1.5); Est. Creatinine Clearance* 26.14; Estimated Glomerular Filt Rate 34 ml/min
[2025-06-10 08:18] LABS: Anion Gap 5 mEq/L (7-15); Calcium* 8.8 mg/dL (8.4-10.6); Carbon Dioxide* 36 mmol/L (20-32); Glucose* 144 mg/dL (60-115)
[2025-06-10] MEDS: NYSTATIN CREAM 30 GM 1 APPLIC TOPICAL ×3 (08:30→21:27)
[2025-06-10] MEDS: MULTIVITAMIN/MINERALS 1 TABLET 1 TAB PO (08:31)
[2025-06-10] MEDS: oxyBUTYnin chloride 5 MG TAB.ER.24 PO (08:31)
[2025-06-10] MEDS: FUROSEMIDE 40 MG TABLET PO (08:31)
[2025-06-10] MEDS: NYSTATIN POWDER 1 APPLIC TOPICAL ×2 (08:31→21:30)
[2025-06-10] MEDS: HYDRALAZINE 10 MG TABLET 20 MG PO ×2 (08:32→21:30)
[2025-06-10] MEDS: SODIUM CHLORIDE 0.9 % (FLUSH) 10 ML SYRINGE 5 ML IVF ×2 (08:32→21:30)
[2025-06-10] MEDS: VALSARTAN 80 MG TABLET PO (08:35)
--- NOTE | 2025-06-10 09:35 | PM.IMPN1 ---
Assessment and Plan Assessment and plan (1) Acute metabolic encephalopathy: Problem comment: - Resolved. Cause uncertain. Certainly has some somnolence periodically due to partially treated GIRISH (uses CPAP part of each night), with hypercapnea on admission that was at least contributing to AMS, it is unclear if it was the cause or worsened by GIRISH in setting of somnolence for a different reason. CT head, admission labs including electrolytes, lactate, LFTs, glucose, WBC, UA, Utox, COVID/flu/RSV reassuring. Patient has not had travel or mosquito/tick exposure. EKG and trop from admission reassuring. ECHO 06/07 showed EF 60-65%, RV function is normal. MRI reassuring. Since she is back to baseline and no mosquito/tick exposure, leukocytosis, fever, or headache, I do not think an LP would be helpful at this point. - 06/10 mouth breathing while using nasal CPAP without a chin strap may have contributed to hypercapnea causing AMS. Recommending chin strap use with CPAP. Status: Acute (2) Acute hypercapnic respiratory failure: Problem comment: CT chest without contrast yesterday, reviewed, no acute findings. I suspect this is from obesity hypoventilation syndrome. Improving. Remains mildly hypoxic, give cautious supplemental oxygen, wean as able. - 06/09 Satting well on RA today. Resolved. Status: Acute (3) Metabolic acidosis: Problem comment: 06/06/25 AB.32/64/58/33 Patient's CO2 level is elevated, however, she appears more somnolent than can be explained by CO2 alone. Will review medications. Also significantly hypoxic. Decision made to start BiPAP. Pressures: IPAP 15/EPAP 5, FiO2 50%. 06/07 - resolved. Doing well off BiPAP this morning. Status: Acute (4) GIRISH (obstructive sleep apnea): Problem comment: Use home CPAP at night. Recommending chin strap use with CPAP. Status: Chronic (5) Obesity hypoventilation syndrome: Problem comment: Encourage HOB elevation at night. Status: Acute (6) Diabetes type 2: Problem comment: Diet controlled. No evidence of hypoglycemia. Regular diet today. HgbA1C 4 months ago at [facility] was 6%. BG has been well controlled here. Stop accuchecks. Status: Chronic (7) Right heart failure: Problem comment: 06/06/25 Given prolonged history of poorly controlled sleep apnea and significant obesity, patient likely has right heart failure if not biventricular failure. Check echocardiogram in a.m. Son endorse she is on diuretics though dose is not clear as yet. Will give her a stat dose of furosemide 40 mg IV. 06/07 - ECHO pending. Received 1/3 doses of IV furosemide. Will give one more dose, then stop IV furosemide and restart her usual oral furosemide tomorrow. Monitor Cr. - 06/08 ECHO showed EF 60-65%, RV function is normal. - 06/09 asymptomatic, chronic HFpEF, no exacerbation. Cr mildly elevated. Hold tomorrow's furosemide. - 06/10 Cr back to baseline. Resume furosemide and valasartan. Status: Chronic (8) Weakness: Problem comment: PT and OT evaluated. MOCA is 07/25. Needs 18/04 supervision. Family agreeable to SNF for rehab. 06/10 SW consulting to help with discharge for rehab Status: Acute (9) Renal cyst: Problem comment: - Seen on CT chest 06/06/25, further w/u as outpatient Status: Acute Subjective Time Seen by Provider: 08:16 Date Seen: 06/10/25 Interval history: Gladys feels well. She has no complaints. Nursing staff noted some difficulty with her CPAP overnight. I spoke with our RT, Rogers, today, who thinks she will benefit from a chin strap to use with her CPAP. Exam Narrative: Exam Narrative: General: No acute distress. Awake, alert, oriented. No pallor. No jaundice. Cardiovascular: Regular rate and rhythm. No murmurs, gallops, or rubs. Respiratory: Clear to auscultation bilaterally. No wheezes or crackles. Abdomen: Bowel sounds present. Soft, nondistended, nontender. Const: Vital Signs, click to edit/add: Vital Signs - 24 hr 06/09/25 11:00 06/09/25 15:00 06/09/25 15:00 Temperature 97.1 F L 97.5 F L Pulse Rate 65 Pulse Rate [Pulse Oximeter] 66 65 Respiratory Rate 16 18 Blood Pressure [Ri ght Arm] 135/64 98/67 Pulse Oximetry 96 91 Oxygen Delivery Me thod Room Air Room Air Oxygen Flow Rate 06/09/25 15:00 06/09/25 18:59 06/09/25 22:33 Temperature 97.4 F L 97.6 F Pulse Rate Pulse Rate [Pulse Oximeter] 65 64 74 Respiratory Rate 18 17 16 Blood Pressure [Ri ght Arm] 142/88 H 148/56 H Pulse Oximetry 91 90 Oxygen Delivery Me thod Room Air OxyMask Oxygen Flow Rate 2 06/09/25 22:33 06/09/25 22:35 06/09/25 22:35 Temperature Pulse Rate 69 Pulse Rate [Pulse Oximeter] 74 Respiratory Rate 16 16 Blood Pressure [Ri ght Arm] Pulse Oximetry 90 Oxygen Delivery Me thod OxyMask Oxygen Flow Rate 2 06/10/25 02:48 06/10/25 07:00 06/10/25 07:00 Temperature 97.8 F Pulse Rate Pulse Rate [Pulse Oximeter] 74 74 Respiratory Rate 18 20 20 Blood Pressure [Ri ght Arm] 146/72 H Pulse Oximetry 88 90 Oxygen Delivery Me thod OxyMask Room Air OxyMask Oxygen Flow Rate 2.5 06/10/25 07:00 06/10/25 07:00 06/10/25 08:00 Temperature 97.9 F Pulse Rate 77 Pulse Rate [Pulse Oximeter] 74 Respiratory Rate 20 Blood Pressure [Ri ght Arm] 135/75 Pulse Oximetry 90 90 Oxygen Delivery Me thod Room Air OxyMask Oxygen Flow Rate Labs Labs: Laboratory Results - last 24 hr 06/10/25 07:53 Sodium 136 Potassium 4.0 Chloride 95 L Carbon Dioxide 36 H Anion Gap 5 L BUN 47 H Creatinine 1.5 Estimated Creat Clear 26.14 Estimated GFR 34 Glucose 144 H Calcium 8.8
--- NOTE | 2025-06-10 09:44 | P.DS_ITS ---
DS: Providers Provider Time Seen by Provider: 08:16 Date Seen: 06/10/25 Date of admission: 06/07/25 03:34 Primary care physician: Keith Kern MD Admitting Clinician: Stephanie Osei MD Consults: 06/07/25 03:09 Consult to Respiratory Therapy [CONS] Stat Comment: Reason(s) for RT Consult:: Sleep Apnea Eval Comment: Needs ABG Needs to be placed on BiPAP 06/07/25 12:17 Consult to Occupational Therapy [CONS] Routine Comment: Reason(s) for OT Consult:: Evaluate and Treat Any Restrictions?:: No Restrictions Consult to Physical Therapy [CONS] Routine Comment: Reason(s) for PT Consult:: Evaluate and Treat Any Restrictions?:: No Restrictions Attending Physician on discharge: Amy Londono MD DS: Diagnosis Discharge Diagnosis (1) Acute metabolic encephalopathy: Status: Acute Problem details: - Resolved. Cause uncertain. Certainly has some somnolence periodically due to partially treated GIRISH (uses CPAP part of each night), with hypercapnea on admission that was at least contributing to AMS, it is unclear if it was the cause or worsened by GIRISH in setting of somnolence for a different reason. CT head, admission labs including electrolytes, lactate, LFTs, glucose, WBC, UA, Utox, COVID/flu/RSV reassuring. Patient has not had travel or mosquito/tick e xposure. EKG and trop from admission reassuring. ECHO 06/07 showed EF 60-65%, RV function is normal. MRI reassuring. Since she is back to baseline and no mosquito/tick exposure, leukocytosis, fever, or headache, I do not think an LP would be helpful at this point. - 06/10 mouth breathing while using nasal CPAP without a chin strap may have contributed to hypercapnea causing AMS. Recommending chin strap use with CPAP. (2) Acute hypercapnic respiratory failure: Status: Acute Problem details: CT chest without contrast yesterday, reviewed, no acute findings. I suspect this is from obesity hypoventilation syndrome. Improving. Remains mildly hypoxic, give cautious supplemental oxygen, wean as able. - 06/09 Satting well on RA today. Resolved. (3) Metabolic acidosis: Status: Acute Problem details: 06/06/25 AB.32/64/58/33 Patient's CO2 level is elevated, however, she appears more somnolent than can be explained by CO2 alone. Will review medications. Also significantly hypoxic. Decision made to start BiPAP. Pressures: IPAP 15/EPAP 5, FiO2 50%. 06/07 - resolved. Doing well off BiPAP this morning. (4) GIRISH (obstructive sleep apnea): Status: Chronic Problem details: Use home CPAP at night. Recommending chin strap use with CPAP. (5) Obesity hypoventilation syndrome: Status: Acute Problem details: Encourage HOB elevation at night. (6) Diabetes type 2: Status: Chronic Problem details: Diet controlled. No evidence of hypoglycemia. Regular diet today. HgbA1C 4 months ago at [facility] was 6%. BG has been well controlled here. Stop accuchecks. (7) Right heart failure: Status: Chronic Problem details: 06/06/25 Given prolonged history of poorly controlled sleep apnea and significant obesity, patient likely has right heart failure if not biventricular failure. Check echocardiogram in a.m. Son endorse she is on diuretics though dose is not clear as yet. Will give her a stat dose of furosemide 40 mg IV. 06/07 - ECHO pending. Received 1/3 doses of IV furosemide. Will give one more dose, then stop IV furosemide and restart her usual oral furosemide tomorrow. Monitor Cr. - 06/08 ECHO showed EF 60-65%, RV function is normal. - 06/09 asymptomatic, chronic HFpEF, no exacerbation. Cr mildly elevated. Hold tomorrow's furosemide. - 06/10 Cr back to baseline. Resume furosemide and valasartan. (8) Renal cyst: Status: Acute Problem details: - Seen on CT chest 06/06/25, further w/u as outpatient (9) Weakness: Status: Acute Problem details: PT and OT evaluated. MOCA is 07/25. Needs 24/ supervision. Family agreeable to SNF for rehab. 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 - 06/07/25 MRI head: Stable large right posterior fossa arachnoid cyst with severe mass effect and mild leftward midline shift of the 4th ventricle. DS: Summary Hospital Course Hospital Course: NOTE TO PCP: Consider further w/u of renal cyst identified on CT chest 06/06/25, if within goals of care. This is an 85-year-old female with a history of progressive memory loss, obstructive sleep apnea and type 2 diabetes mellitus who had excessive daytime somnolence and drowsiness over the last 2 weeks that got much worse the day before admission to the point where she was unable to get out of her chair and her son could barely keep her awake. For son and fqbegbcp-dw-cil tell me that she has had episodes of date time and somnolence for several weeks before when she seems to be off on her sleeping schedule for a few weeks and then goes back to normal. They do not know what causes the initial change. She has not had any fever, chills, headache, rash, cough, or other evidence of illness recently. She has not had any travel or spent any time outside to have mosquito or tick exposure. She has had no change in her medications recently. Upon presentation and admission she had a CT head, admission labs including electrolytes, lactate, LFTs, glucose, white count, UA and U tox as well as COVID/flu/RSV which were reassuring. By the next morning her mentation had improved and she was almost back to baseline. She did note some decreased sensation of her left lower extremity along with pain in both knees and was noted to be slightly weaker in her left lower extremity. MRI head was reassuring and showed no evidence of stroke. Since she returned to baseline, LP was not attempted. XR knee and ankle reassuring. PT and OT evaluated. She continued to have stable mentation and has been on her home CPAP overnight without oxygen needs other than at night when she was mouth breathing on nasal CPAP. 18/04 supervision is re commended and her son is interested in rehab for her. Please see diagnoses above for further details. Time Spent with Patient Time attestation: Total time spent providing and/or coordinating discharge services: Exam Narrative: Exam Narrative: General: No acute distress. Awake, alert, oriented. No pallor. No jaundice. Cardiovascular: Regular rate and rhythm. No murmurs, gallops, or rubs. Respiratory: Clear to auscultation bilaterally. No wheezes or crackles. Abdomen: Bowel sounds present. Soft, nondistended, nontender. Const: Vital Signs, click to edit/add: Vital Signs - 24 hr 06/09/25 11:00 06/09/25 15:00 06/09/25 15:00 Temperature 97.1 F L 97.5 F L Pulse Rate 65 Pulse Rate [Pulse Oximeter] 66 65 Respiratory Rate 16 18 Blood Pressure [Ri ght Arm] 135/64 98/67 Pulse Oximetry 96 91 Oxygen Delivery Me thod Room Air Room Air Oxygen Flow Rate 06/09/25 15:00 06/09/25 18:59 06/09/25 22:33 Temperature 97.4 F L 97.6 F Pulse Rate Pulse Rate [Pulse Oximeter] 65 64 74 Respiratory Rate 18 17 16 Blood Pressure [Ri ght Arm] 142/88 H 148/56 H Pulse Oximetry 91 90 Oxygen Delivery Me thod Room Air OxyMask Oxygen Flow Rate 2 06/09/25 22:33 06/09/25 22:35 06/09/25 22:35 Temperature Pulse Rate 69 Pulse Rate [Pulse Oximeter] 74 Respiratory Rate 16 16 Blood Pressure [Ri ght Arm] Pulse Oximetry 90 Oxygen Delivery Me thod OxyMask Oxygen Flow Rate 2 06/10/25 02:48 06/10/25 07:00 06/10/25 07:00 Temperature 97.8 F Pulse Rate Pulse Rate [Pulse Oximeter] 74 74 Respiratory Rate 18 20 20 Blood Pressure [Ri ght Arm] 146/72 H Pulse Oximetry 88 90 Oxygen Delivery Me thod OxyMask Room Air OxyMask Oxygen Flow Rate 2.5 06/10/25 07:00 06/10/25 07:00 06/10/25 08:00 Temperature 97.9 F Pulse Rate 77 Pulse Rate [Pulse Oximeter] 74 Respiratory Rate 20 Blood Pressure [Ri ght Arm] 135/75 Pulse Oximetry 90 90 Oxygen Delivery Me thod Room Air OxyMask Oxygen Flow Rate DS: Data Data Completed and Pending Completed studies during hospitalization: 06/06/2025 EKG: Normal sinus rhythm, 63 beats per minute, low-voltage QRS, cannot rule out anterior infarct, age undetermined. 06/07/2025 echocardiogram: Technically limited exam, not well visualized LV size, normal wall thickness, normal global systolic function with an estimated EF of 60-65%. Echo contrast was administered to enhance visualization of all left ventricular segments. Right ventricular cavity size is normal, global systolic RV function is normal. Mildly enlarged left atrium. Aortic valve is not well visualized, no stenosis and trivial regurgitation. Mitral valve is not well visualized, mild mitral regurgitation. Tricuspid valve is not well visualized, trace tricuspid regurgitation. No pericardial effusion. Ordering Physician: Harley Grove D.O. Date of Service: 06/06/25 Procedure(s): CT cervical spine wo con Accession Number(s): [id number] cc: Harley Grove D.O.; Keith Kern M.D.~ For Patients: As a result of the Cures Act, medical imaging exams and procedure reports are released immediately into your electronic medical record. You may view this report before your referring provider. If you have questions, please contact your health care provider. INDICATION: Fall. TECHNIQUE: CT cervical spine without contrast. COMPARISON: None. FINDINGS: Vertebrae: Straightening of the cervical lordosis with grade 1 anterolisthesis of C4 on C5. There are no fractures or suspicious bony lesions. Discs and facet joints: There are owvn-vj-orevlwqs diffuse degenerative changes in the disc spaces and facet joints. Extraspinal findings: Paraspinous soft tissues are unremarkable. IMPRESSION: 1. No sign of acute injury. 2. Xiqp-ok-fzjmffea multilevel degenerative spondylosis. Please note that all CT scans at this facility use dose modulation, iterative reconstruction, and/or weight-based dosing when appropriate to reduce radiation dose to as low as reasonably achievable. Dictated by Grant Milan MD @ 06/07/2025 12:55:45 AM (Electronically Signed) Ordering Physician: Harley Grove D.O. Date of Service: 06/06/25 Procedure(s): CT chest wo con Accession Number(s): [id number] cc: Harley Grove D.O.; Keith Kern M.D.~ For Patients: As a result of the Cures Act, medical imaging exams and procedure reports are released immediately into your electronic medical record. You may view this report before your referring provider. If you have questions, please contact your health care provider. INDICATION: FALL 06/05/25, BRUISING LT UPPER POSTERIOR RIBS. TECHNIQUE: CT chest without contrast. COMPARISON: None. FINDINGS: Lungs and pleura: No suspicious nodules or infiltrates. No pleural effusions, pleural thickening, or pneumothorax. Heart and vasculature: Heart size is normal. Thoracic aorta and pulmonary artery are normal in caliber. Coronary artery and thoracic aorta atherosclerotic calcification. Lymph nodes/mediastinum: No mediastinal, hilar, or axillary adenopathy. Chest wall: No masses. Upper abdomen: Indeterminate 3.5 cm hyperdense left renal lesion. 3 mm nonobstructing left nephrolith. Bones: Unremarkable for age. IMPRESSION: 1. No evidence of an acute traumatic injury within the chest. No acute findings. 2. Indeterminate 3.5 cm hyperdense left renal lesion, possibly a proteinaceous or hemorrhagic cyst. Consider ultrasound for further evaluation. Please note that all CT scans at this facility use dose modulation, iterative reconstruction, and/or weight-based dosing when appropriate to reduce radiation dose to as low as reasonably achievable. Dictated by Grant Milan MD @ 06/07/2025 1:03:15 AM (Electronically Signed) Ordering Physician: Harley Grove D.O. Date of Service: 06/06/25 Procedure(s): CT head/brain wo con Accession Number(s): [id number] cc: Harley Grove D.O.; Keith Kern M.D.~ For Patients: As a result of the Century Cures Act, medical imaging exams and procedure reports are released immediately into your electronic medical record. You may view this report before your referring provider. If you have questions, please contact your health care provider. INDICATION: Fall, 06/05/2025. TECHNIQUE: CT head without contrast. COMPARISON: 05/15/2020. FINDINGS: Brain parenchyma, CSF spaces, and extra-axial spaces: Unchanged large right-sided posterior fossa arachnoid cyst with mass effect on the cerebellum.The lyles-white differentiation is normal. No acute intracranial hemorrhage. Skull base and calvarium: Mild bilateral maxillary sinus mucosal thickening. Prior left mastoidectomy. New fluid versus soft tissue density in the left middle ear. The visualized orbits are grossly unremarkable. No skull fracture. Atherosclerotic calcification of the bilateral carotid siphons. IMPRESSION: 1. No acute intracranial abnormality. 2. Unchanged large right-sided posterior fossa arachnoid cyst with mass effect cerebellum subarachnoid. 3. Prior left mastectomy with new fluid versus soft tissue density in the left middle ear. Recommend correlation for otitis media. Please note that all CT scans at this facility use dose modulation, iterative reconstruction, and/or weight-based dosing when appropriate to reduce radiation dose to as low as reasonably achievable. Dictated by Grant Milan MD @ 06/07/2025 12:52:23 AM (Electronically Signed) Ordering Physician: Amy Londono M.D. Date of Service: 06/07/25 Procedure(s): MR head/brain wo/w con Accession Number(s): [id number] cc: Amy Londono M.D.; Keith Kern M.D.~ For Patients: As a result of the Century Cures Act, medical imaging exams and procedure reports are released immediately into your electronic medical record. You may view this report before your referring provider. If you have questions, please contact your health care provider. Indication: Altered mental status. Leg weakness. Technique: Multiplanar, multisequence MRI of the brain was performed without and with intravenous contrast. Contrast: 20 cc Dotarem. Comparison: CT head 06/06/2025. Findings: Mild to moderate patient motion related artifact, most notably on the postcontrast sequences. Mild thinning of the corpus callosum. The pituitary gland and clivus appear intact. There is no restricted diffusion. No intracranial hemorrhage. No hydrocephalus. There is a large right posterior fossa arachnoid cyst which measures 7.4 x 6.3 cm (TR x AP x CC). Results in severe mass effect upon the right cerebellum, with leftward midline shift of the 4th ventricle. No enhancing intracranial mass. Moderate parenchymal volume loss. Mlfg-jm-saepnnhg T2 FLAIR hyperintense foci within the subcortical and periventricular white matter, favored to represent chronic ischemic microvascular disease. Major intracranial vascular flow voids appear grossly intact. Both globes are preserved. Impression: 1. No acute/subacute infarct. 2. Stable large right posterior fossa arachnoid cyst with severe mass effect and mild leftward midline shift of the 4th ventricle. 3. Cewp-is-sifmjznr chronic ischemic microvascular disease. Dictated by Francis Jack MD @ 06/07/2025 1:44:08 PM (Electronically Signed) Ordering Physician: Amy Londono M.D. Date of Service: 06/08/25 Procedure(s): XR ankle LT min 3V Accession Number(s): [id number] cc: Amy Londono M.D.; Keith Kern M.D.~ For Patients: As a result of the Cures Act, medical imaging exams and procedure reports are released immediately into your electronic medical record. You may view this report before your referring provider. If you have questions, please contact your health care provider. INDICATION: Posttraumatic pain. Weakness. COMPARISON: None available. TECHNIQUE: Three views of the left ankle. FINDINGS: Mineralization: Normal. Alignment: Normal. Bones and Joints: No fracture is identified. Posterior calcaneal spurs are noted incidentally. Soft Tissues: No significant soft tissue findings. The radiopaque marker is imbedded within the patient`s sock limit evaluation of the soft tissues to some degree. Arterial calcifications are noted incidentally. IMPRESSION: No acute traumatic injury is identified. Dictated by Victorino Robles MD @ 06/08/2025 9:24:53 AM (Electronically Signed) Ordering Physician: Amy Londono M.D. Date of Service: 06/08/25 Procedure(s): XR knee LT 2V Accession Number(s): [id number] cc: Amy Londono M.D.; Keith Kern M.D.~ For Patients: As a result of the Cures Act, medical imaging exams and procedure reports are released immediately into your electronic medical record. You may view this report before your referring provider. If you have questions, please contact your health care provider. INDICATION: Posttraumatic pain. Weakness. COMPARISON: None available. TECHNIQUE: views of the two left knee. FINDINGS: Mineralization: Normal. Alignment: Normal. Bones and Joints: No fracture is identified. Patellofemoral and medial tibiofemoral osteoarthrosis. Soft Tissues: Small joint effusion. No focal periarticular soft tissue swelling. IMPRESSION: No acute traumatic injury is identified. Osteoarthrosis and joint effusion. Dictated by Victorino Robles MD @ 06/08/2025 9:23:28 AM (Electronically Signed) Ordering Physician: Amy Londono M.D. Date of Service: 06/08/25 Procedure(s): XR chest 1V portable Accession Number(s): [id number] cc: Amy Londono M.D.; Keith Kern M.D.~ For Patients: As a result of the Century Cures Act, medical imaging exams and procedure reports are released immediately into your electronic medical record. You may view this report before your referring provider. If you have questions, please contact your health care provider. INDICATION: Hypoxia. COMPARISON: 08/14/2021 TECHNIQUE: Single AP view of the chest. FINDINGS: Medical Devices: None. Lung Volumes: Adequate inspiration. No significant atelectasis. Lungs: Clear lungs. Pleura and Pleural spaces: No significant pleural effusion. No pneumothorax. Mediastinum: Normal cardiomediastinal silhouette. Bony Thorax and Soft Tissues: No significant incidental findings. IMPRESSION: No acute findings. Dictated by Victorino Robles MD @ 06/08/2025 9:22:31 AM (Electronically Signed) Labs on day of discharge: Labs from last 24 hours 06/10/25 07:53 Sodium 136 Potassium 4.0 Chloride 95 L Carbon Dioxide 36 H Anion Gap 5 L BUN 47 H Creatinine 1.5 Estimated Creat Clear 26.14 Estimated GFR 34 Glucose 144 H Calcium 8.8 Preliminary micro results at discharge 06/06/25 23:31 Blood Culture - Preliminary Blood NO GROWTH AFTER 72 HOURS 06/06/25 23:20 Blood Culture - Preliminary Blood NO GROWTH AFTER 72 HOURS Discharge Plan Discharge Disposition: [facility] Date of Admission: 06/07/25 03:34 Primary Care Provider: Keith Kern Condition: Stable Discharge Medications: New nystatin 100,000 unit/gram Cream 1 applic topical TID Qty: 15 0RF nystatin 100,000 unit/gram Powder 1 applic topical BID Qty: 15 0RF Continued atorvastatin 80 mg tablet 80 mg PO QPM carvedilol 6.25 mg tablet 6.25 mg PO BIDWM hydralazine 10 mg tablet 20 mg PO BID levothyroxine 100 mcg tablet 100 mcg PO DAILY oxybutynin chloride 5 mg tablet extended release 24hr 5 mg PO DAILY valsartan 40 mg tablet 80 mg PO DAILY furosemide 40 mg tablet 40 mg PO MOWESA@08 cholecalciferol (vitamin D3) [Vitamin D3] 50 mcg (2,000 unit) tablet 50 mcg PO DAILY PreserVision AREDS-2 250-90-40-1 mg capsule 2 tab PO DAILY multivitamin [Daily Value] Tablet 1 tab PO DAILY Discontinued diltiazem HCl 300 mg capsule,extended release 24hr 300 mg PO DAILY escitalopram oxalate 5 mg tablet 5 mg PO DAILY Additional Instructions: Use CPAP with chin strap (when available) nightly. Activity Level: No Restrictions Discharge Diet: Regular Follow Up Appointments: Keith Kern MD [Primary Care Provider, [facility]] [facility] Admit to: SNF Discharge Potential: Fair Length of Stay: <30 days Code Status: DNR Therapy: Physical Therapy and Occupational Therapy Therapy Orders: Evaluate and Treat Oxygen: No Urinary Catheter: No Orders are good >30 days: No Signature: Amy Londono MD
--- NOTE | 2025-06-10 10:18 | RESP.RT ---
Patient sitting up in chair, on room air 92% SaO2, breathing regular easy, BBS clear with good air movement. Patient has Home CPAP at bed side, complaint last two nights of Home CPAP not working for patient. Had patient place Home CPAP, needed no assistance, patient as automatic (SMART START). machine worked as it should. Patient had Home CPAP on 12-15 minutes, cat napped after a few minutes, mouth came open, machine stopped and started again when patient closed mouth and took a breath. Discussed this issue with Tremaine, patients Son. Suggested use of a chin strap, or change of mask, to nasal/full face mask. Had patient remove mask, no issues with that.
--- NOTE | 2025-06-10 16:22 | PC.SOCIAL ---
Discharge planning: GUADALUPE spoke with son, Tremaine, via phone. SW explained that patient would need TCU. Tremaine is in agreement and would like SW to start with [facility] as their first choice. GU[facility]ALUPE sent referral to [facility] responded and informed SW that they cannot take her due to her insurance. GUADALUPE spoke with son who reports he would like a referral sent to [facility] [employer] [facility] and [facility]. GUADALUPE sent referrals to Majo at [facility] and Maritza at [facility]. Majo inquired about discharge after TCU and GUADALUPE informed that the plan is for patient to live with her son following TCU d/c. SW awaiting for responses from [facility] and [facility] on whether they can accept or decline. SW to continue to assist with discharge planning.
[2025-06-10] MEDS: ATORVASTATIN CALCIUM 40 MG TABLET 80 MG PO (18:53)
[2025-06-11] VITALS (10 sets, daily range): BP systolic 101–171; BP diastolic 44–81; PULSE 60–77; RESP 16–20; TEMP 36.3–36.6; O2SAT 92–96
[2025-06-11] MEDS: HEPARIN 5,000 UNIT/0.5 ML INJ 5000 UNIT SUBCUT ×3 (05:22→20:32)
[2025-06-11] MEDS: LEVOTHYROXINE 100 MCG TABLET PO (05:22)
[2025-06-11 06:35] LABS: HCO3 VBG 33 mmol/L (21-28); PCO2 VBG 57 mmHG (40-50); PO2 VBG 77.4 mmHG (25-47); pH VBG 7.375 (7.32-7.43)
--- NOTE | 2025-06-11 06:44 | PC.NURSE ---
Pt is alert and oriented to self and place only. Afebrile. Pt is up A1 with walker and gait belt, voiding and tolerating a regular diet. Attempts made to use pt?s?CPAP but pt O2 stats would dropped to 80-84%. Pt placed on 0.5L oxy mask to maintain O2 stats of 88%. ?
[2025-06-11] MEDS: VALSARTAN 80 MG TABLET PO (09:32)
[2025-06-11] MEDS: HYDRALAZINE 10 MG TABLET 20 MG PO ×2 (09:32→20:32)
[2025-06-11] MEDS: oxyBUTYnin chloride 5 MG TAB.ER.24 PO (09:32)
[2025-06-11] MEDS: MULTIVITAMIN/MINERALS 1 TABLET 1 TAB PO (09:32)
[2025-06-11] MEDS: SODIUM CHLORIDE 0.9 % (FLUSH) 10 ML SYRINGE 5 ML IVF ×2 (09:34→20:32)
[2025-06-11] MEDS: NYSTATIN CREAM 30 GM 1 APPLIC TOPICAL ×2 (09:46→13:42)
[2025-06-11] MEDS: NYSTATIN POWDER 1 APPLIC TOPICAL (09:46)
--- NOTE | 2025-06-11 13:02 | P.IMPN_ITS ---
Assessment and Plan Assessment and plan (1) Acute metabolic encephalopathy: Problem comment: - Resolved. Contributing factor: partially treated GIRISH (uses CPAP part of each night), with hypercapnia on admission that was at least contributing to AMS, it is unclear if it was the cause or worsened by GIRISH in setting of somnolence for a different reason - workup: CT head, admission labs including electrolytes, lactate, LFTs, glucose, WBC, UA, Utox, COVID/flu/RSV reassuring. Patient has not had travel or mosquito/tick exposure. EKG and trop from admission reassuring. ECHO 06/07 showed EF 60-65%, RV function is normal. MRI reassuring. LP deferred given clinical improvement - 06/10 mouth breathing while using nasal CPAP without a chin strap may have contributed to hypercapnea causing AMS. Recommending chin strap use with CPAP. Status: Acute (2) Acute hypercapnic respiratory failure: Problem comment: CT chest without contrast yesterday, reviewed, no acute findings. I suspect this is from obesity hypoventilation syndrome. Improving. Remains mildly hypoxic, give cautious supplemental oxygen, wean as able. - 06/09 Satting well on RA today. Resolved. Status: Acute (3) Metabolic acidosis: Problem comment: 06/06/25 AB.32/64/58/33 Patient's CO2 level is elevated, however, she appears more somnolent than can be explained by CO2 alone. Will review medications. Also significantly hypoxic. Decision made to start BiPAP. Pressures: IPAP 15/EPAP 5, FiO2 50%. 06/07 - resolved. Doing well off BiPAP this morning. Status: Acute (4) GIRISH (obstructive sleep apnea): Problem comment: Use home CPAP at night. Recommending chin strap use with CPAP. Status: Chronic (5) Obesity hypoventilation syndrome: Problem comment: Encourage HOB elevation at night. Status: Acute (6) Diabetes type 2: Problem comment: Diet controlled. No evidence of hypoglycemia. Regular diet today. HgbA1C 4 months ago at [facility] was 6%. BG has been well controlled here. Stop accuchecks. Status: Chronic (7) Right heart failure: Problem comment: 06/06/25 Given prolonged history of poorly controlled sleep apnea and significant obesity, patient likely has right heart failure if not biventricular failure. Check echocardiogram in a.m. Son endorse she is on diuretics though dose is not clear as yet. Will give her a stat dose of furosemide 40 mg IV. 06/07 - ECHO pending. Received 1/3 doses of IV furosemide. Will give one more dose, then stop IV furosemide and restart her usual oral furosemide tomorrow. Monitor Cr. - 06/08 ECHO showed EF 60-65%, RV function is normal. - 06/09 asymptomatic, chronic HFpEF, no exacerbation. Cr mildly elevated. Hold tomorrow's furosemide. - 06/10 Cr back to baseline. Resume furosemide and valasartan. Status: Chronic (8) Renal cyst: Problem comment: - Seen on CT chest 06/06/25, further w/u as outpatient Status: Acute (9) Weakness: Problem comment: PT and OT evaluated. MOCA is 1030. Needs / supervision. Family agreeable to SNF for rehab. 06/10 SW consulting to help with discharge for rehab Status: Acute (10) Arachnoid cyst of posterior cranial fossa: Problem comment: - Previously known, saw neurosurgeon in 2021 who recommended no surgery, monitoring with MRI and monitoring for symptoms - 06/06/25 CT head: Unchanged large right-sided posterior fossa arachnoid cyst with mass effect cerebellum subarachnoid. - 06/07/25 MRI head: Stable large right posterior fossa arachnoid cyst with severe mass effect and mild leftward midline shift of the 4th ventricle. Status: Chronic Plan - await placement Subjective Date Seen: 06/11/25 Interval history: Gladys was admitted to the hospital on non 1225 for somnolence in the setting of acute on chronic respiratory failure, likely secondary to GIRISH. Admission VBG revealed a pH of 7.32 with P CO2 of 64, improved with CPAP use during stay. Workup revealed no other evidence of infection or metabolic disturbance causing her somnolence. Notably had a [place] of 10/30 during stay with known history of cognitive impairment. Family and patient have elected for SNF placement; she is currently medically stable and awaiting acceptance locally. This morning, Gladys feels good. No concerns for hospitalist team. Exam Narrative: Exam Narrative: GEN: Alert and sitting comfortably in bedside chair, nontoxic HEENT: EOMIs bilaterally, no scleral icterus CV: RRR, No concerning murmurs R: LCTA without wheezing Skin: No concerning skin lesions or rashes Neuro: No focal deficits Psych: Appropriate, cognitive impairment evident but no agitation Const: Vital Signs, click to edit/add: Vital Signs - 24 hr 06/10/25 15:00 06/10/25 15:00 06/10/25 15:00 Temperature Pulse Rate 74 Pulse Rate [Pulse Oximeter] 78 Respiratory Rate 18 18 Blood Pressure [Ri ght Arm] Pulse Oximetry 97 Oxygen Delivery Me thod Room Air Oxygen Flow Rate Fraction of Inspir ed Oxygen 06/10/25 15:00 06/10/25 19:45 06/10/25 23:00 Temperature 97.8 F 98.5 F 97.4 F L Pulse Rate Pulse Rate [Pulse Oximeter] 78 75 78 Respiratory Rate 18 20 20 Blood Pressure [Ri ght Arm] 140/85 H 159/73 H 190/110 H Pulse Oximetry 97 94 91 Oxygen Delivery Me thod Room Air Room Air OxyMask Oxygen Flow Rate 2 Fraction of Inspir ed Oxygen 21 06/10/25 23:00 06/11/25 00:17 06/11/25 02:03 Temperature 97.6 F 97.4 F L Pulse Rate 69 Pulse Rate [Pulse Oximeter] 75 75 Respiratory Rate 20 20 Blood Pressure [Ri ght Arm] 133/73 154/81 H Pulse Oximetry 96 92 Oxygen Delivery Me thod OxyMask OxyMask Oxygen Flow Rate 0.5 0.5 Fraction of Inspir ed Oxygen 06/11/25 07:00 06/11/25 07:00 06/11/25 07:00 Temperature 97.6 F Pulse Rate Pulse Rate [Pulse Oximeter] 68 68 Respiratory Rate 20 20 20 Blood Pressure [Ri ght Arm] 171/71 H Pulse Oximetry 92 93 Oxygen Delivery Me thod OxyMask OxyMask Oxygen Flow Rate 0.5 0.5 Fraction of Inspir ed Oxygen 06/11/25 07:00 06/11/25 08:00 06/11/25 11:00 Temperature 97.6 F Pulse Rate 60 Pulse Rate [Pulse Oximeter] 77 Respiratory Rate 18 Blood Pressure [Ri ght Arm] 128/61 Pulse Oximetry 93 92 Oxygen Delivery Me thod Room Air OxyMask Oxygen Flow Rate Fraction of Inspir ed Oxygen Labs Labs: Laboratory Results - last 24 hr 06/11/25 06:15 VBG pH 7.375 VBG pCO2 57 H VBG pO2 77.4 H VBG HCO3 33 H
--- NOTE | 2025-06-11 15:52 | PC.SOCIAL ---
Discharge planning: GUADALUPE faxed new referral to Latosha and Karen at [facility] to determine if they can take patient and if it's in network. GUADALUPE spoke with patient's son and explained the $225 per day copay for [facility]. Patient's son would like to also send a referral to [facility] to see if they have openings. GUADALUPE sent referral to Molly at [facility]. GUADALUPE called Latosha, who explains that she would have a bed available in her LTC and then in 1-2 days patient could transfer to the TCU. GUADALUPE inquired about in-network vs out. Latosha states she will look into that and call SW back. SW received call saying they are also out of network and so the copay would be the same. GUADALUPE called Molly at [facility] and requested a call back about the referral. GUADALUPE called Fouzia with [facility], but she did not answer. GUADALUPE emailed Fouzia inquiring about patient's insurance and if it is in Network. Fouzia states she believes it is. GUADALUPE called patient's son and explained that [facility] was also out of network and the cost would be the same. GUADALUPE discussed that she has been trying to contact [facility] and hasn't gotten a response yet. Son inquired about how long patient would need rehab for to determine payment for the cost. GUADALUPE states she will talk with PT and see what their estimate would be, and GUADALUPE explained that this is only an estimate and can't say that this would be what the facility recommends. GUADALUPE spoke with PT and they estimate around 7-10 days. GUADALUPE called Molly again and emailed asking for an update. Molly responded stating they don't have availability. GUADALUPE called patient's son and provided him with the estimate from PT and that [facility] doesn't have any beds. Son states that at this time he would like to see if [facility] still has openings vs looking at [facility] facilities who may be in network as they are farther away. Son had questions about if patient could be discharged when son and family feel she is at her baseline from rehab. SW discussed that they could and that there's potential this could be against medical advice and so they may have to do more work in getting her medications or other things set up, however, SW discussed that facilities also try to work with families around this. GUADALUPE emailed Majo at [facility] inquiring if they still have openings as son will pay the copay and would like to accept if there is still availability. SW awaiting response.
--- NOTE | 2025-06-11 18:06 | PC.NURSE ---
End of shift: patients VSS, on RA when awake sating around 93%. 0.5L NC when sleeping d/t mouth breathing and O2 dipping down to low 70's. Patient is alert and oriented x3. afebrile this shift. Patient ambulating hallways with 1 assist ww/GB and to BR. Up to chair for meals. Pt. denies N/V/SOB or pain.
[2025-06-11] MEDS: ATORVASTATIN CALCIUM 40 MG TABLET 80 MG PO (20:33)
[2025-06-12] VITALS (8 sets, daily range): BP systolic 139–174; BP diastolic 62–75; PULSE 70–88; RESP 16–18; TEMP 36.2–36.9; O2SAT 90–160
[2025-06-12] MEDS: LEVOTHYROXINE 100 MCG TABLET PO (07:19)
[2025-06-12] MEDS: HEPARIN 5,000 UNIT/0.5 ML INJ 5000 UNIT SUBCUT ×3 (07:19→20:28)
--- NOTE | 2025-06-12 09:29 | RESP.RT ---
Patient assessed for walking oxygen saturation. Patient maintained saturation of 89-94% with walking. States it feels less difficult to breath while walking today, however overall states her breathing and stuffy head are worse. BS are tight I and E wheezing throughout lung hammer. Continue nebs q 2 at this time with use of aerobika with nebs or every other neb and self use. IS instruction and use. Discussed assessment with provider and RN. Will continue to follow patient throughout the day.
[2025-06-12] MEDS: FUROSEMIDE 40 MG TABLET PO (09:30)
[2025-06-12] MEDS: oxyBUTYnin chloride 5 MG TAB.ER.24 PO (09:31)
[2025-06-12] MEDS: VALSARTAN 80 MG TABLET PO (09:31)
[2025-06-12] MEDS: NYSTATIN POWDER 1 APPLIC TOPICAL ×2 (09:32→20:33)
[2025-06-12] MEDS: MULTIVITAMIN/MINERALS 1 TABLET 1 TAB PO (09:32)
[2025-06-12] MEDS: NYSTATIN CREAM 30 GM 1 APPLIC TOPICAL ×3 (09:32→20:30)
[2025-06-12] MEDS: HYDRALAZINE 10 MG TABLET 20 MG PO ×2 (09:32→20:29)
--- NOTE | 2025-06-12 10:48 | PM.IMPN1 ---
Assessment and Plan Assessment and plan (1) Acute metabolic encephalopathy: Problem comment: - Resolved. Contributing factor: partially treated GIRISH (uses CPAP part of each night), with hypercapnia on admission that was at least contributing to AMS, it is unclear if it was the cause or worsened by GIRISH in setting of somnolence for a different reason - workup: CT head, admission labs including electrolytes, lactate, LFTs, glucose, WBC, UA, Utox, COVID/flu/RSV reassuring. Patient has not had travel or mosquito/tick exposure. EKG and trop from admission reassuring. ECHO 06/07 showed EF 60-65%, RV function is normal. MRI reassuring. LP deferred given clinical improvement - 06/10 mouth breathing while using nasal CPAP without a chin strap may have contributed to hypercapnea causing AMS. Recommending chin strap use with CPAP. Status: Acute (2) Acute hypercapnic respiratory failure: Problem comment: - CT chest without contrast yesterday, reviewed, no acute findings; likely 2/2 obesity hypoventilation syndrome Improving. Remains mildly hypoxic, give cautious supplemental oxygen, wean as able - 06/09: RESOLVED Status: Acute (3) Metabolic acidosis: Problem comment: - 06/06/25: AB.32/64/58/33 - treated with course of BIPAP - 06/07: RESOLVED, doing well off BiPAP this morning Status: Acute (4) GIRISH (obstructive sleep apnea): Problem comment: - using home CPAP at night. Recommending chin strap use with CPAP. Status: Chronic (5) Obesity hypoventilation syndrome: Problem comment: Encourage HOB elevation at night. Status: Acute (6) Diabetes type 2: Problem comment: - Diet controlled. No evidence of hypoglycemia. Regular diet today. HgbA1C 4 months ago at [facility] was 6%. BG has been well controlled here Status: Chronic (7) Right heart failure: Problem comment: 06/06/25 Given prolonged history of poorly controlled sleep apnea and significant obesity, patient likely has right heart failure if not biventricular failure. Check echocardiogram in a.m. Son endorses she is on diuretics though dose is not clear as yet. Will give her a stat dose of furosemide 40 mg IV. - 06/07: ECHO pending. Received 1/3 doses of IV furosemide. Will give one more dose, then stop IV furosemide and restart her usual oral furosemide tomorrow. Monitor Cr. - 06/08: ECHO showed EF 60-65%, RV function is normal. - 06/09: asymptomatic, chronic HFpEF, no exacerbation. Cr mildly elevated. Hold 06/10 furosemide. - 06/10: Cr back to baseline. Resume furosemide and valsartan. Status: Chronic (8) Renal cyst: Problem comment: - Seen on CT chest 06/06/25, further w/u as outpatient Status: Acute (9) Weakness: Problem comment: PT and OT evaluated. MOCA is 10/30. Needs 24/ supervision. Family agreeable to SNF for rehab. 06/10 SW consulting to help with discharge for rehab Status: Acute (10) Arachnoid cyst of posterior cranial fossa: Problem comment: - Previously known, saw neurosurgeon in 2021 who recommended no surgery, monitoring with MRI and monitoring for symptoms - 06/06/25 CT head: Unchanged large right-sided posterior fossa arachnoid cyst with mass effect cerebellum subarachnoid. - 06/07/25 MRI head: Stable large right posterior fossa arachnoid cyst with severe mass effect and mild leftward midline shift of the 4th ventricle. Status: Chronic Plan - rehab at [facility] 06/13, appreciate assistance from GUADALUPE Subjective Date Seen: 06/12/25 Interval history: Gladys was admitted to the hospital on non 1225 for somnolence in the setting of acute on chronic respiratory failure, likely secondary to GIRISH. Admission VBG revealed a pH of 7.32 with P CO2 of 64, improved with CPAP use during stay. Workup revealed no other evidence of infection or metabolic disturbance causing her somnolence. Notably had a MOCA of 10/30 during stay with known history of cognitive impairment. Family and patient have elected for SNF placement; she is currently medically stable and awaiting acceptance locally. This morning, Gladys feels good. No concerns for hospitalist team. Exam Narrative: Exam Narrative: GEN: Alert and sitting comfortably in bedside chair HEENT: EOMIs bilaterally, no scleral icterus CV: RRR, No concerning murmurs R: Breathing comfortably, no audible wheezing Neuro: Nonfocal Psych: Appropriate Const: Vital Signs, click to edit/add: Vital Signs - 24 hr 06/11/25 11:00 06/11/25 14:39 06/11/25 15:00 Temperature 97.6 F Pulse Rate [Pulse Oximeter] 77 76 Respiratory Rate 18 18 18 Blood Pressure [Ri ght Arm] 128/61 Pulse Oximetry 92 92 Oxygen Delivery Me thod Room Air OxyMask Room Air Oxygen Flow Rate 06/11/25 15:00 06/11/25 20:25 06/11/25 22:30 Temperature 97.6 F 98 F 97.5 F L Pulse Rate [Pulse Oximeter] 76 71 72 Respiratory Rate 18 18 16 Blood Pressure [Ri ght Arm] 101/44 L 150/60 H 136/63 Pulse Oximetry 93 92 96 Oxygen Delivery Me thod Room Air Room Air OxyMask Oxygen Flow Rate 2 06/11/25 23:00 06/12/25 03:40 06/12/25 08:00 Temperature 98.1 F 98.0 F Pulse Rate [Pulse Oximeter] 88 70 Respiratory Rate 16 16 18 Blood Pressure [Ri ght Arm] 160/71 H 174/75 H Pulse Oximetry 94 93 90 Oxygen Delivery Me thod OxyMask OxyMask Room Air Oxygen Flow Rate 2 1
--- NOTE | 2025-06-12 13:59 | PC.SOCIAL ---
Discharge planning: GUADALUPE received email from patient's son inquiring about availability at [facility] because they have to pay out of pocket anyway. SW responded and informed that [facility] may have availability, however, the cost would be higher as they don't accept patient's insurance at all, so all of it would be out of pocket and the cost would be around $450-$550 a day. Son asked if everywhere would be that way then with cost. GUADALUPE called son and explained that there may be in network options through [facility], however, they would need a referral and they would still have to run the insurance and SW is unaware of what the cost would be until they did that. Son states he would like to continue with [facility] in this case. SW explained that discharge wouldn't be until tomorrow as [facility] can't accept anyone else for admission today. Son explained he will be back at work tomorrow, but could be there for the admission. SW inquired about what time would work best prior to 1400 for admission. Son states 1300. Son requested [facility] transportation and SW explained the cost of $113. Son was agreeable to this cost. Son had questions about hospital bills he will receive. SW explained that she is unable to answer those questions, but could find the billing offices number and send that to him. GUADALUPE also explained that Majo from [facility] should be calling him to complete a financial questionnaire that she does with every family. GUADALUPE emailed Patient Financial Services number to patient's son. GUADALUPE informed Maoj of admission time of 1300. GUADALUPE completed and sent PAS to Majo - [id number]. GUADALUPE notified rn discharge of [facility] request and completed transport form. GUADALUPE to send orders to Majo in the morning.
[2025-06-12] MEDS: ATORVASTATIN CALCIUM 40 MG TABLET 80 MG PO (20:27)
[2025-06-12] MEDS: SODIUM CHLORIDE 0.9 % (FLUSH) 10 ML SYRINGE 5 ML IVF (20:32)
--- NOTE | 2025-06-12 21:29 | PC.NURSE ---
End of shift: pt has been very pleasant. she is able to meet her needs know. on RA when awake. she needs o2 with sleep. she is eating, drinking and voiding. she is incontinent of urine. Patient ambulating hallways with 1 assist ww/GB and to BR. Up to chair for meals. Pt. denies N/V/SOB or pain.
[2025-06-12] MEDS: ACETAMINOPHEN 500 MG TABLET 1000 MG PO (23:27)
[2025-06-13 02:31] VITALS: BP 119/58; PULSE 69; RESP 17; TEMP 36.6; O2SAT 93
[2025-06-13] MEDS: HEPARIN 5,000 UNIT/0.5 ML INJ 5000 UNIT SUBCUT (05:55)
[2025-06-13] MEDS: LEVOTHYROXINE 100 MCG TABLET PO (06:13)
[2025-06-13 07:00] VITALS: BP 140/66; PULSE 67; RESP 16; O2SAT 92; O2SAT 96
--- NOTE | 2025-06-13 07:37 | PC.NURSE ---
Shift note ([id number]): Patient pleasant, alert and oriented. Ambulated to bathroom with assist of one, wheeled walker and gait belt.?O2 at 0-1 LPM via Ox[employer]izer.?Repositioned and given PRN Tylenol for reports of general discomfort.?
[2025-06-13] MEDS: VALSARTAN 80 MG TABLET PO (08:51)
[2025-06-13] MEDS: HYDRALAZINE 10 MG TABLET 20 MG PO (08:51)
[2025-06-13] MEDS: oxyBUTYnin chloride 5 MG TAB.ER.24 PO (08:51)
[2025-06-13] MEDS: MULTIVITAMIN/MINERALS 1 TABLET 1 TAB PO (08:51)
--- NOTE | 2025-06-13 09:04 | PC.SOCIAL ---
Discharge planning: secure emailed discharge orders to [facility]. Left voicemail with coordinator skill training program Majo, requesting confirmation of receipt of all needed information as pt is scheduled for discharge by EMS at 10:00 today. Called son who is aware and agrees with this plan. Shared with son by phone information on the Important Message from Medicare and right to appeal discharge. Son confirms he is pleased with discharge plan.
--- NOTE | 2025-06-13 10:39 | PC.NURSE ---
The patient discharged via non emergent EMS to [facility] for rehab. Nurse to nurse was given to N[place], all questions were answered. The patients son was called when the patient left the hospital, I also gave him updates regarding medications that the patient has stopped taking. Moving SBA to Ax1, no pain reported by the patient. Incontinent at times due to overflow and urgency. All belongings were sent home with the patient. [place] [facility]
--- NOTE | 2025-06-13 15:05 | P.DS_ITS ---
DS: Providers Provider Date Seen: 06/13/25 Date of admission: 06/07/25 03:34 Primary care physician: Keith Kern MD Admitting Clinician: Stephanie Osei MD Consults: 06/07/25 03:09 Consult to Respiratory Therapy [CONS] Stat Comment: Reason(s) for RT Consult:: Sleep Apnea Eval Comment: Needs ABG Needs to be placed on BiPAP 06/07/25 12:17 Consult to Occupational Therapy [CONS] Routine Comment: Reason(s) for OT Consult:: Evaluate and Treat Any Restrictions?:: No Restrictions Consult to Physical Therapy [CONS] Routine Comment: Reason(s) for PT Consult:: Evaluate and Treat Any Restrictions?:: No Restrictions Attending Physician on discharge: Andrew Nayak MD Date of Discharge: 06/13/25 DS: Diagnosis Discharge Diagnosis (1) Acute hypercapnic respiratory failure: Status: Acute Problem details: - CT chest without contrast yesterday, reviewed, no acute findings; likely 2/2 obesity hypoventilation syndrome Improving. Remains mildly hypoxic, give cautious supplemental oxygen, wean as able - 06/09: RESOLVED (2) Metabolic acidosis: Status: Acute Problem details: - 06/06/25: AB.32/64/58/33 - treated with course of BIPAP - 06/07: RESOLVED, doing well off BiPAP this morning (3) Acute metabolic encephalopathy: Status: Acute Problem details: - Resolved. Contributing factor: partially treated GIRISH (uses CPAP part of each night), with hypercapnia on admission that was at least contributing to AMS, it is unclear if it was the cause or worsened by GIRISH in setting of somnolence for a different reason - workup: CT head, admission labs including electrolytes, lactate, LFTs, glucose, WBC, UA, Utox, COVID/flu/RSV reassuring. Patient has not had travel or mosquito/tick exposure. EKG and trop from admission reassuring. ECHO 06/07 showed EF 60-65%, RV function is normal. MRI reassuring. LP deferred given clinical improvement - 06/10 mouth breathing while using nasal CPAP without a chin strap may have contributed to hypercapnea causing AMS. Recommending chin strap use with CPAP. (4) Obesity hypoventilation syndrome: Status: Acute Problem details: Encourage HOB elevation at night. (5) Weakness: Status: Acute Problem details: PT and OT evaluated. MOCA is 07/25. Needs 24/ supervision. Family agreeable to SNF for rehab. 06/10 SW consulting to help with discharge for rehab (6) GIRISH (obstructive sleep apnea): Status: Chronic Problem details: - using home CPAP at night. Recommending chin strap use with CPAP. (7) Right heart failure: Status: Chronic Problem details: 06/06/25 Given prolonged history of poorly controlled sleep apnea and significant obesity, patient likely has right heart failure if not biventricular failure. Check echocardiogram in a.m. Son endorses she is on diuretics though dose is not clear as yet. Will give her a stat dose of furosemide 40 mg IV. - 06/07: ECHO pending. Received 1/3 doses of IV furosemide. Will give one more d ose, then stop IV furosemide and restart her usual oral furosemide tomorrow. Monitor Cr. - 06/08: ECHO showed EF 60-65%, RV function is normal. - 06/09: asymptomatic, chronic HFpEF, no exacerbation. Cr mildly elevated. Hold 06/10 furosemide. - 06/10: Cr back to baseline. Resume furosemide and valsartan. (8) Diabetes type 2: Status: Chronic Problem details: - Diet controlled. No evidence of hypoglycemia. Regular diet today. HgbA1C 4 months ago at [facility] was 6%. 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 - 06/07/25 MRI head: Stable large right posterior fossa arachnoid cyst with severe mass effect and mild leftward midline shift of the 4th ventricle. DS: Summary Hospital Course Hospital Course: NOTE TO PCP: Consider further w/u of renal cyst identified on CT chest 06/06/25, if within goals of care. This is an 85-year-old female with a history of progressive memory loss, obstructive sleep apnea and type 2 diabetes mellitus who had excessive daytime somnolence and drowsiness over the last 2 weeks that got much worse the day before admission to the point where she was unable to get out of her chair and her son could barely keep her awake. For son and [id number] tell me that she has had episodes of date time and somnolence for several weeks before when she seems to be off on her sleeping schedule for a few weeks and then goes back to normal. They do not know what causes the initial change. She has not had any fever, chills, headache, rash, cough, or other evidence of illness recently. She has not had any travel or spent any time outside to have mosquito or tick exposure. She has had no change in her medications recently. Upon presentation and admission she had a CT head, admission labs including electrolytes, lactate, LFTs, glucose, white count, UA and U tox as well as COVID/flu/RSV which were reassuring. By the next morning her mentation had improved and she was almost back to baseline. She did note some decreased sensation of her left lower extremity along with pain in both knees and was noted to be slightly weaker in her left lower extremity. MRI head was reassuring and showed no evidence of stroke. Since she returned to baseline, LP was not attempted. XR knee and ankle reassuring. PT and OT evaluated. She continued to have stable mentation and has been on her home CPAP overnight without oxygen needs other than at night when she was mouth breathing on nasal CPAP. 24/ supervision is recommended and her son is interested in rehab for her. Please see diagnoses above for further details. Gladys was admitted to the hospital on non 1225 for somnolence in the setting of acute on chronic respiratory failure, likely secondary to GIRISH. Admission VBG revealed a pH of 7.32 with P CO2 of 64, improved with CPAP use during stay. Workup revealed no other evidence of infection or metabolic disturbance causing her somnolence. Notably had a MOCA of 10/30 during stay with known history of cognitive impairment. Family and patient have elected for SNF placement; she is medically stable. Status at Discharge Overall status at discharge: patient is not back to baseline Time Spent with Patient Time attestation: Total time spent providing and/or coordinating discharge services: Time spent: Greater than 30 minutes Exam Narrative: Exam Narrative: GEN: Alert and sitting comfortably in bedside chair HEENT: EOMIs bilaterally, no scleral icterus CV: RRR, No concerning murmurs R: Breathing comfortably, no audible wheezing Neuro: Nonfocal Psych: Appropriate Const: Vital Signs, click to edit/add: Vital Signs - 24 hr 06/12/25 16:00 06/12/25 16:00 06/12/25 16:00 Temperature 97.6 F Pulse Rate [Pulse Oximeter] 73 73 Respiratory Rate 18 16 16 Blood Pressure [Ri ght Arm] 160/65 H Pulse Oximetry 160 H 92 Oxygen Delivery Me thod Room Air Room Air Oxygen Flow Rate 06/12/25 19:43 06/12/25 23:32 06/12/25 23:35 Temperature 97.1 F L 98.4 F Pulse Rate [Pulse Oximeter] 72 73 Respiratory Rate 16 Blood Pressure [Ri ght Arm] 139/62 151/66 H Pulse Oximetry 94 98 98 Oxygen Delivery Me thod Room Air OxyMask OxyMask Oxygen Flow Rate 1 1 06/13/25 02:31 06/13/25 07:00 06/13/25 07:00 Temperature 97.8 F Pulse Rate [Pulse Oximeter] 69 67 Respiratory Rate 17 16 Blood Pressure [Ri ght Arm] 119/58 L 140/66 H Pulse Oximetry 93 92 96 Oxygen Delivery Me thod OxyMask Room Air Room Air Oxygen Flow Rate DS: Data Imaging C- Spine CT: Radiologist's impression: IMPRESSION: 1. No sign of acute injury. 2. [id number] multilevel degenerative spondylosis. CT scan - head: Radiologist's impression: IMPRESSION: 1. No acute intracranial abnormality. 2. Unchanged large right-sided posterior fossa arachnoid cyst with mass effect cerebellum subarachnoid. 3. Prior left mastectomy with new fluid versus soft tissue density in the left middle ear. Recommend correlation for otitis media. CT scan - chest: Radiologist's impression: IMPRESSION: 1. No evidence of an acute traumatic injury within the chest. No acute findings. 2. Indeterminate 3.5 cm hyperdense left renal lesion, possibly a proteinaceous or hemorrhagic cyst. Consider ultrasound for further evaluation. MR Brain: Radiologist's impression: Impression: 1. No acute/subacute infarct. 2. Stable large right posterior fossa arachnoid cyst with severe mass effect and mild leftward midline shift of the 4th ventricle. 3. [id number] chronic ischemic microvascular disease. ankle, knee, chest x-rays: Radiologist's impression: No acute abnormalities Discharge Plan Discharge Disposition: Xfer SNF Discharge Location: [facility] Date of Admission: 06/07/25 03:34 Attending Provider on Discharge: Andrew Nayak Primary Care Provider: Keith Kern Condition: Improved Anticipated Discharge Date/Time: 06/13/25 10:00 Discharge Medications: New nystatin 100,000 unit/gram Cream 1 applic topical TID Qty: 15 0RF nystatin 100,000 unit/gram Powder 1 applic topical BID Qty: 15 0RF Continued atorvastatin 80 mg tablet 80 mg PO QPM carvedilol 6.25 mg tablet 6.25 mg PO BIDWM hydralazine 10 mg tablet 20 mg PO BID levothyroxine 100 mcg tablet 100 mcg PO DAILY oxybutynin chloride 5 mg tablet extended release 24hr 5 mg PO DAILY valsartan 40 mg tablet 80 mg PO DAILY furosemide 40 mg tablet 40 mg PO MOWESA@08 cholecalciferol (vitamin D3) [Vitamin D3] 50 mcg (2,000 unit) tablet 50 mcg PO DAILY PreserVision AREDS-2 250-90-40-1 mg capsule 2 tab PO DAILY multivitamin [Daily Value] Tablet 1 tab PO DAILY Discontinued diltiazem HCl 300 mg capsule,extended release 24hr 300 mg PO DAILY escitalopram oxalate 5 mg tablet 5 mg PO DAILY Discharge Orders: Discharge Order (Routine); Ordered 06/13/25 Ordered By: Andrew Nayak Additional Instructions: Use CPAP with chin strap (when available) nightly. Activity Level: No Restrictions and Use Walker Discharge Diet: Regular Follow Up Appointments: Keith Kern MD [Primary Care Provider, Family Practice] Forms: Patient Belongings, [facility] Info Instructions Discharge Comments: Patient desires transitional care services with eventual return to home if possible Admit to: SNF Discharge Potential: Fair Length of Stay: <30 days Can use facility standing orders?: Yes Code Status: DNR Rehab Potential: Fair Therapy: Physical Therapy and Occupational Therapy Therapy Orders: Evaluate and Treat Oxygen: No Urinary Catheter: No Glucose Checks: BID Orders are good >30 days: No Signature: Andrew Nayak
== END 2025-06-13 10:15 | DRG 189 ==
LOC: ED 06-07 01:18 → MEDSURG 06-07 02:20
PROVIDERS: Family Medicine; Physician Assistant; Admitting Provider Internal Medicine; Emergency Provider Student in an Organized Health Care Education/Training Program; PCP Family Medicine; Visit Provider Internal Medicine
DX: J96.21 Acute and chronic respiratory failure with hypoxia (principal); G93.41 Metabolic encephalopathy; I50.33 Acute on chronic diastolic (congestive) heart failure; E66.2 Morbid (severe) obesity with alveolar hypoventilation; E87.20 Acidosis, unspecified; J96.22 Acute and chronic respiratory failure with hypercapnia; Z99.89 Dependence on other enabling machines and devices; Z68.36 Body mass index [BMI] 36.0-36.9, adult; G93.0 Cerebral cysts; N28.1 Cyst of kidney, acquired; E11.9 Type 2 diabetes mellitus without complications; G31.84 Mild cognitive impairment of uncertain or unknown etiology
CPT/HCPCS: 36415; 36600; 70450; 70553; 71045; 71250; 72125; 73560; 73610; 80048; 80053; 80306; 81001; 82803; 83605; 83735; 83880; 84439; 84443; 84484; 85025; 87040; 87086; 87631; 93005; 93306; 94660; 94761; 97110; 97116; 97162; 97165; 97530; 97535; 99283; 99285; A9153; A9270; A9575; J0295; J1644; J1938; Q9957

== ENCOUNTER 2025-06-13 10:12 | Outpatient (CLI) | payer MEDICARE, SELFPAY | END 2025-06-13 10:13 | disposition home or self-care (01) | LOC: AMB 06-14 10:09 | PROVIDERS: PCP Family Medicine; Visit Provider Student in an Organized Health Care Education/Training Program | DX: J96.02 Acute respiratory failure with hypercapnia (principal) | CPT/HCPCS: A0425; A0428 ==